=== PATIENT | female | born 1975 | race Caucasian/White ===

== ENCOUNTER 2017-05-26 17:20 | Inpatient (IN) | payer OTHER ==
[~2017-05-26] VITALS: Ht 182.9 cm; Wt 79.0 kg
[~2017-05-26 17:20] MED LIST: CLOP1TAB15 PO
[2017-05-26 18:23] LABS: BASO % 0.5 %; BASO ABS # 0.04 K/uL (0-0.2); EOS % 3.8 %; EOS ABS # 0.31 K/uL (0-0.5); HEMATOCRIT 29.9 % (37-47); HEMOGLOBIN 9.2 g/dL (12.0-16.0); IG# 0.01 K/uL (0.00-0.02); LYMPH % 30.5 %; LYMPH ABS # 2.49 K/uL (1.2-3.4); MEAN CELL VOLUME 71.5 fL (80-100); MEAN CORPUSCULAR HGB CONC 30.8 g/dl (32-36); MEAN PLATELET VOLUME 8.4 fL (7.4-10.4); MONO % 5.5 %; MONO ABS # 0.45 K/uL (0.11-0.59); NEUT % 59.6 %; NEUT ABS # 4.87 K/uL (1.4-6.5); PLATELET COUNT 321 K/uL (130-400); RED CELL DISTRIBUTION WIDTH CV 17.7 % (11.5-14.5); RED CELL DISTRIBUTION WIDTH SD 45.9 fL (36.4-46.3); WHITE BLOOD COUNT 8.17 K/uL (4.8-10.8)
[2017-05-26 18:45] LABS: CALCIUM 8.8 mg/dl (8.5-10.1); CREATININE 0.54 mg/dl (0.60-1.20); POTASSIUM 3.2 mmol/L (3.5-5.1)
--- NOTE | 2017-05-26 21:01 | DIAGNOSTIC IMAGING REPORT ---
DOPPLER ULTRASOUND OF THE LEFT LOWER EXTREMITY ARTERIES; ANKLE-BRACHIAL INDICES CLINICAL HISTORY: Left leg pain. COMPARISON STUDY: Doppler ultrasound of the left lower extremity arteries dated 11/08/2015. TECHNIQUE: Real-time, grayscale, and color Doppler sonography of the arteries of the left lower extremity is performed from the inguinal crease to the foot. Ankle brachial indices are calculated. FINDINGS: Ankle brachial indices: Right brachial pressure measures 145 and left brachial pressure measures 161. Pressures in the left posterior tibial artery measure 167 for an MONY of 0.66, and pressures in the left dorsalis pedis artery measure 112 for an MONY of 0.70. Pressures in the left posterior tibial artery measure 72 for an MONY of 0.45, and pressures in the left dorsalis pedis artery measure 65 for an MONY of 0.40. Left lower extremity: There is advanced atherosclerotic plaque seen throughout the arteries of the left lower extremity. There are biphasic to triphasic waveforms in the left common femoral artery with velocities measuring up to 210 cm/s. The profundus femoris artery is patent with velocities measuring up to 62 cm/s. There is complete thrombosis seen from the distal common femoral artery to the proximal popliteal artery. A stent in the superficial femoral artery is thrombosed. Collateral vessels are noted in the region of the distal superficial femoral and popliteal arteries. The mid to distal popliteal artery is patent with velocities measuring up to 76 cm/s. There is blunted arterial upstroke. The calf arteries are patent noting monophasic flow. Velocities in the calf vessels measure up to 41 cm/s. The dorsalis pedis artery is patent with velocities measuring up to 116 cm/s. Arterial waveforms are monophasic. IMPRESSION: 1. Advanced peripheral vascular disease with complete thrombosis from the distal common femoral artery to the proximal popliteal artery. A stent in the superficial femoral artery is occluded. 2. The calf arteries are patent noting monophasic flow. 3. Ankle-brachial indices as above. Dictated: 05/26/2017 8:26 PM Transcribed: 05/26/2017 9:00 PM [facility] Electronically signed by: Jason Campa M.D. 05/26/2017 9:05 PM Dictated Date/Time: 05/26/2017 8:26 PM
[2017-05-26] MEDS ORDERED: POTASSIUM CHLORIDE 10 MEQ TABCR PO STA (21:37)
[2017-05-26] MEDS ORDERED: HEPARIN SOD (PORCINE) 1000 UNIT/ML 10 ML VIAL IV STA (21:56)
[2017-05-26] MEDS: HEPARIN 25,000 UNIT/500ML D5W 500 ML IV PRN (22:36)
[2017-05-26] MEDS ORDERED: PROCHLORPERAZINE INJ 5 MG in SYRINGE 4 ML IV PRN (22:45)
[2017-05-26] MEDS ORDERED: LORAZEPAM 2 MG/ML 1 ML VIAL IV PRN (22:45)
[2017-05-26] MEDS ORDERED: MoRPHine SULFATE 4 MG/ML 1 ML CARP\\VIAL IV PRN (22:45)
[2017-05-26] MEDS ORDERED: ACETAMINOPHEN 325 MG TAB PO PRN (22:45)
[2017-05-26 23:06] VITALS: Ht 182.9 cm; Wt 79.0 kg
[2017-05-26 23:11] LABS: ALBUMIN 3.3 gm/dl (3.4-5.0); ALKALINE PHOSPHATASE 81 U/L (45-117); ALT/SGPT 16 U/L (12-78); AST/SGOT 16 U/L (15-37); TOTAL PROTEIN 7.1 gm/dl (6.4-8.2)
[2017-05-26 23:17] LABS: INR 0.9 (0.9-1.1); PTT PATIENT 22.9 SECONDS (21.0-31.0)
--- NOTE | 2017-05-27 00:18 | HISTORY & PHYSICAL EXAMINATION ---
DATE OF ADMISSION: 05/26/2017 PRIMARY CARE PHYSICIAN: Dr. Goldstein. CHIEF COMPLAINT: Left leg pain. HISTORY OF PRESENT ILLNESS: Medical history significant for hypercoagulable state (history of prothrombin mutation, recurrent miscarriages, arterial clot) peripheral vascular disease status post surgery, ongoing tobacco abuse, chronic iron deficiency anemia, medication noncompliance. Recent confinement last July 2015 for acute left lower extremity superficial femoral artery thrombosis status post thrombolysis, embolectomy and stent placement. Patient discharged on Plavix initially. Outpatient [facility] H[facility]ology evaluation requested by PCP following discharge for evaluation of arterial thrombosis. Outpatient workup showed iron deficiency anemia, iron tablets recommended, Patient later referred to Coumadin clinic for anticoagulation for arterial clots which patient complied with for a few months. She stopped Coumadin later on because she felt that she did not need it anymore. Last 2 days, patient noted worsening left lower extremity pain even at rest. No chest pain, no shortness of breath, no fever, no chills, no unusual swelling. No changes in leg sensation or temperature. No trauma. At the Emergency Room, ultrasound showed advanced PVD with complete thrombosis of distal common femoral artery proximal popliteal artery occluded, stent SFA. IV heparin started in the ER following recommendations of vascular surgeon on- call. MEDICAL HISTORY: As above. SURGERIES: Vascular procedures. HOME MEDICATIONS: None. ALLERGIES: PATIENT IS ALLERGIC TO ASPIRIN, NAPROXEN. FAMILY HISTORY: Breast cancer, diabetes. PERSONAL AND SOCIAL HISTORY: One pack daily. No chronic intake of alcoholic beverages. 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 REVIEW OF SYSTEMS: As per HPI All 10 systems reviewed. All other ROS negative. PHYSICAL EXAMINATION: VITAL SIGNS: Blood pressure was noted to be 160/77, later 137/72, pulse rate 81, RR 18, temperature 37.4, sats 100 on room air. GENERAL: Noted to be slightly anxious, no respiratory distress, looks older than stated age. SKIN: Pallor. Warm. HEENT: Pale palpebral conjuctivae. No ptosis. Dry mucosa. NECK: Supple neck. Nontender. HEART: Regular rate and rhythm. No murmur. ABDOMEN: Soft, nontender. EXTREMITIES: Erythematous digits of both feet. No tenderness. No unusual swelling. Decreased pedal pulses noted on the left lower extremity. NE : Coherent no gross focality LABORATORY DATA: Hemoglobin was noted to be 10.2, hematocrit 29.9, white cell count 8.17, platelets 201. Sodium 140, potassium 3.2, chloride 106, CO2 21, BUN 9, creatinine 0.5, glucose was noted to be 80. LLE Arterial Dopplers as above. ASSESSMENT: 1. Recurrent thrombosis, left lower extremity. history of peripheral vascular disease sp surgery probable hypercoagulable state. History Coumadin noncompliance 2. Ongoing tobacco use. 3. Chronic anemia iron deficiency on previous workup as per patient's record. Hemoglobin at baseline. 4. Hypokalemia. PLAN: [facility] IV heparin as per ER provider's discussion with vascular surgeon on-call, Dr. Jaimes. Replace potassium. Nicotine patch. DVT prophylaxis, Heparin. Full code. MTDD
--- NOTE | 2017-05-27 00:20 | EMERGENCY ROOM VISIT NOTE ---
History Report prepared by Isaias: Chito Faith Under the Supervision of: Dr. Westley Brewster D.O. First contact with patient: 17:27 Chief Complaint: LEG PAIN,LEG INJURY Stated Complaint: PVD- LEFT LEG CHES REALLY BAD, TOES LOSING FEELING History of Present Illness The patient is a 41 year old female who presents to the Emergency Room with complaints of persistent left leg pain since May 25, 2017. She notes a history of PVD in her left leg. 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 She states that she rested when she got home, though the pain has not gone away. She describes the pain as achy. She currently rates her pain a 7/10 in severity. She notes new numbness in her left toes. She notes the pain worsens with walking. She can walk about 60 feet before the achiness begins. She notes a history of two left leg surgeries related to her PVD. She notes the first surgery was to clear her left femoral artery and the second surgery was an angioplasty. She has a history of smoking. She notes that she is supposed to be on a blood thinner, though is not currently taking any blood thinners. Source of History: patient Onset: May 25, 2017 Position: leg Symptom Intensity: 7/10 Quality: ache Timing: other (persistent) Modifying Factors (Worsening): other (walking) Associated Symptoms: + numbness (left toes) Note: She notes left leg pain. Review of Systems See HPI for pertinent positives & negatives. A total of 10 systems reviewed and were otherwise negative. Past Medical & Surgical Medical Problems: (1) Femoral artery occlusion, left (2) Femoral popliteal artery thrombus (3) History of - miscarriage (4) Sciatica Surgical Problems: (1) Hx of endarterectomy (2) Status post arterial stent Family History FH: cancer FH: diabetes mellitus Social History Smoking Status: Current Every Day Smoker Alcohol Use: none Marital Status: in relationship Housing Status: lives with family Occupation Status: employed Allergies Coded Allergies: Aspirin (Verified Allergy, Unknown, SWELLING, CAN TAKE IBU PER PATIENT, ) Naproxen (Verified Allergy, Unknown, CAN TAKE IBU PER PATIENT, 05/26/17) Physical Exam Vital Signs Date Time Temp Pulse Resp B/P (MAP) Pulse Ox O2 Delivery O2 Flow Rate FiO2 1/20/18 23:28 88 18 119/64 98 Room Air 05/26/17 23:06 Room Air 05/26/17 22:28 81 18 137/72 100 Room Air 05/26/17 20:31 85 16 143/88 98 Room Air 05/26/17 17:23 37.4 93 20 164/77 100 Room Air Physical Exam GENERAL: Sitting up in bed, alert, well appearing, well nourished, no distress, non-toxic. Smells of smoke. EYE EXAM: normal conjunctiva. OROPHARYNX: no exudate, no erythema, lips, buccal mucosa, and tongue normal and mucous membranes are moist NECK: supple, no nuchal rigidity, no adenopathy, non-tender LUNGS: Clear to auscultation. Normal chest wall mechanics HEART: no murmurs, S1 normal and S2 normal ABDOMEN: abdomen soft, non-tender, normo-active bowel sounds, no masses, no rebound or guarding. BACK: Back is symmetrical on inspection and there is no deformity, no midline tenderness, no CVA tenderness. SKIN: no rashes and no bruising UPPER EXTREMITIES: upper extremities are grossly normal. LOWER EXTREMITIES: No pitting edema. Capillary refill is 3 seconds. Flexion and extension of hips, knees, ankles, and EHL intact bilaterally. Unable to appreciate popliteal and DP pulses. NEURO EXAM: Normal sensorium, cranial nerves II-XII grossly intact, normal speech, no gross weakness of arms. Medical Decision & Procedures ER Provider Diagnostic Interpretation: Radiology results as stated below per my review and the radiologist's interpretation: DOPPLER ULTRASOUND OF THE LEFT LOWER EXTREMITY ARTERIES; ANKLE-BRACHIAL INDICES CLINICAL HISTORY: Left leg pain. COMPARISON STUDY: Doppler ultrasound of the left lower extremity arteries dated 11/08/2015. TECHNIQUE: Real-time, grayscale, and color Doppler sonography of the arteries of the left lower extremity is performed from the inguinal crease to the foot. Ankle brachial indices are calculated. FINDINGS: Ankle brachial indices: Right brachial pressure measures 145 and left brachial pressure measures 161. Pressures in the left posterior tibial artery measure 167 for an MONY of 0.66, and pressures in the left dorsalis pedis artery measure 112 for an MONY of 0.70. Pressures in the left posterior tibial artery measure 72 for an MONY of 0.45, and pressures in the left dorsalis pedis artery measure 65 for an MONY of 0.40. Left lower extremity: There is advanced atherosclerotic plaque seen throughout the arteries of the left lower extremity. There are biphasic to triphasic waveforms in the left common femoral artery with velocities measuring up to 210 cm/s. The profundus femoris artery is patent with velocities measuring up to 62 cm/s. There is complete thrombosis seen from the distal common femoral artery to the proximal popliteal artery. A stent in the superficial femoral artery is thrombosed. Collateral vessels are noted in the region of the distal superficial femoral and popliteal arteries. The mid to distal popliteal artery is patent with velocities measuring up to 76 cm/s. There is blunted arterial upstroke. The calf arteries are patent noting monophasic flow. Velocities in the calf vessels measure up to 41 cm/s. The dorsalis pedis artery is patent with velocities measuring up to 116 cm/s. Arterial waveforms are monophasic. IMPRESSION: 1. Advanced peripheral vascular disease with complete thrombosis from the distal common femoral artery to the proximal popliteal artery. A stent in the superficial femoral artery is occluded. 2. The calf arteries are patent noting monophasic flow. 3. Ankle-brachial indices as above. Dictated: 05/26/2017 8:26 PM Transcribed: 05/26/2017 9:00 PM [email or web address] Electronically signed by: Jason Campa M.D. 05/26/2017 9:05 PM Dictated Date/Time: 05/26/2017 8:26 PM Laboratory Results 05/26/17 18:12 Red Blood Count 4.18, Mean Corpuscular Volume 71.5, Mean Corpuscular Hemoglobin 22.0, Mean Corpuscular Hemoglobin Concent 30.8, Mean Platelet Volume 8.4, Neutrophils (%) (Auto) 59.6, Lymphocytes (%) (Auto) 30.5, Monocytes (%) (Auto) 5.5, Eosinophils (%) (Auto) 3.8, Basophils (%) (Auto) 0.5, Neutrophils # (Auto) 4.87, Lymphocytes # (Auto) 2.49, Monocytes # (Auto) 0.45, Eosinophils # (Auto) 0.31, Basophils # (Auto) 0.04 05/26/17 18:12 Test 05/26/17 18:12 05/26/17 18:46 05/26/17 22:25 White Blood Count 8.17 K/uL (4.8-10.8) Red Blood Count 4.18 M/uL (4.2-5.4) Hemoglobin 9.2 g/dL (12.0-16.0) Hematocrit 29.9 % (37-47) Mean Corpuscular Volume 71.5 fL (80-100) Mean Corpuscular Hemoglobin 22.0 pg (25-34) Mean Corpuscular Hemoglobin Concent 30.8 g/dl (32-36) Platelet Count 321 K/uL (130-400) Mean Platelet Volume 8.4 fL (7.4-10.4) Neutrophils (%) (Auto) 59.6 % Lymphocytes (%) (Auto) 30.5 % Monocytes (%) (Auto) 5.5 % Eosinophils (%) (Auto) 3.8 % Basophils (%) (Auto) 0.5 % Neutrophils # (Auto) 4.87 K/uL (1.4-6.5) Lymphocytes # (Auto) 2.49 K/uL (1.2-3.4) Monocytes # (Auto) 0.45 K/uL (0.11-0.59) Eosinophils # (Auto) 0.31 K/uL (0-0.5) Basophils # (Auto) 0.04 K/uL (0-0.2) RDW Standard Deviation 45.9 fL (36.4-46.3) RDW Coefficient of Variation 17.7 % (11.5-14.5) Immature Granulocyte % (Auto) 0.1 % Immature Granulocyte # (Auto) 0.01 K/uL (0.00-0.02) Hypochromasia PRESENT Microcytosis PRESENT Anion Gap 14.0 mmol/L (3-11) Est Creatinine Clear Calc Drug Dose 158.2 ml/min Estimated GFR () 135.8 Estimated GFR (Non- 117.2 BUN/Creatinine Ratio 15.8 (10-20) Calcium Level 8.8 mg/dl (8.5-10.1) Magnesium Level 2.3 mg/dl (1.8-2.4) Total Bilirubin 0.2 mg/dl (0.2-1) Direct Bilirubin < 0.1 mg/dl (0-0.2) Aspartate Amino Transf (AST/SGOT) 16 U/L (15-37) Alanine Aminotransferase (ALT/SGPT) 16 U/L (12-78) Alkaline Phosphatase 81 U/L (45-117) Total Protein 7.1 gm/dl (6.4-8.2) Albumin 3.3 gm/dl (3.4-5.0) Human Chorionic Gonadotropin, Qual NEG (NEG) Lactic Acid Level 0.9 mmol/L (0.4-2.0) Prothrombin Time 9.6 SECONDS (9.0-12.0) Prothromb Time International Ratio 0.9 (0.9-1.1) Activated Partial Thromboplast Time 22.9 SECONDS (21.0-31.0) Partial Thromboplastin Ratio 0.9 Laboratory results per my review. Medications Administered Medications (Trade) Dose Ordered Sig/Ladarius Route Start Time Stop Time Status Last Admin Dose Admin Potassium Chloride (Klor-Con M10) 40 meq NOW STAT PO 05/26/17 21:37 05/26/17 21:56 DC 05/26/17 22:30 40 MEQ Heparin Sodium (Porcine) (Heparin Iv Bolus) 6,000 unit NOW STAT IV 05/26/17 21:56 05/26/17 21:57 DC 05/26/17 22:34 5,000 UNIT Heparin Sodium/ Dextrose 500 ml @ 27 mls/hr [id number] PRN IV 05/26/17 22:00 06/25/17 21:59 05/26/17 22:36 27 MLS/HR ED Course ED COURSE: Vital signs were reviewed and showed hypertensive. The patients medical record was reviewed The above diagnostic studies were performed and reviewed. ED treatments and interventions as stated above. 8: The patient was evaluated in room C12B. A complete history and physical examination was performed. 1830: I reassessed the patient at this time. She is resting. 2134: Upon reevaluation, I discussed my findings with the patient and she understands and agrees with the treatment plan. Based on the patients age, coexisting illnesses, exam and lab findings the decision to treat as an inpatient was made. The patient remained stable while under my care. The patient will be evaluated for further management. 2136: Ordered Potassium-Chloride 40 meq PO 6: I spoke with Vernon Bedollahey vascular surgeon. We discussed the patient's case. He recommends further evaluation. 2149: [place] [facility] [place] the patients case. The [facility] further management. 2155: Ordered Heparin Sodium (Porcine) 6,000 unit IV Medical Decision Differential diagnosis: Etiologies such as DVT, musculoskeletal, infection, joint effusion, trauma, lymphedema, idiopathic, CHF, as well as others were entertained. Patient is a 41-year-old female who presents to ER with a history of peripheral vascular disease and multiple stents her left leg. She notes that she has been having pain since this past Sunday. She does have tingling and numbness in the toes. She is still smoking. She does not take her Plavix as previously prescribed. CBC shows an anemia. BMP with mild hypokalemia. Patient was given a bolus of heparin and placed on heparin drip following discussion with Dr. Jaimes. Patient denied any bleeding risk factors including previous head bleeds, recent trauma, recent surgery, coughing up blood, vomiting blood, blood in stool or blood in urine. Patient was updated at bedside and admitted to internal medicine with arterial thrombus and decrease ABIs in her left lower extremity. Medication Reconcilliation Current Medication List: was personally reviewed by me Blood Pressure Screening Patient's blood pressure: Elevated blood pressure Blood pressure disposition: Elevated BP felt to be situational Consults Time Called: 2139 Consulting Physician: Sultana Bedolla vascular surgeon Returned Call: 2145 I spoke with Sultana Bedolla vascular surgeon. We discussed the patient's case. He recommends further evaluation. Additional Consults: Time Called: 2147 [facility] Returned Call: 2149 Additional Comments: [facility] We discussed the patients case. The patient will be evaluated by [facility] for further management. Impression Primary Impression: Femoral artery occlusion, left Additional Impression: Hypokalemia Critical Care I have personally spent 35 minutes of critical care time in the direct management of this patient. This includes bedside care, interpretation of diagnostic studies, and testing, discussion with consultants, patient, and family members, and other required patient management activities. This 35 minutes is in excess of all separately billable procedures. Scribe Attestation The scribe's documentation has been prepared under my direction and personally reviewed by me in its entirety. I confirm that the note above accurately reflects all work, treatment, procedures, and medical decision making performed by me. Departure Information Dispostion Being Evaluated By Hospitalist Referrals Kin Goldstein M.D.(BRITT) (PCP) Patient Instructions My [facility] Problem Qualifiers
[2017-05-27 00:27] VITALS: BP 147/78; PULSE 85; TEMP 37.1; O2SAT 99
[2017-05-27] MEDS ORDERED: LACTATED RINGER'S 1000ML 1,000 ML IV SCH (01:30)
[2017-05-27 04:58] LABS: HEMOGLOBIN 8.8 g/dL (12.0-16.0); MEAN CORPUSCULAR HEMOGLOBIN 21.8 pg (25-34); MEAN CORPUSCULAR HGB CONC 30.3 g/dl (32-36); MEAN PLATELET VOLUME 8.5 fL (7.4-10.4); PLATELET COUNT 309 K/uL (130-400); RED CELL DISTRIBUTION WIDTH CV 17.6 % (11.5-14.5); RED CELL DISTRIBUTION WIDTH SD 46.2 fL (36.4-46.3); WHITE BLOOD COUNT 7.77 K/uL (4.8-10.8)
[2017-05-27 05:13] LABS: PTT PATIENT 36.9 SECONDS (21.0-31.0)
[2017-05-27 05:22] LABS: CALCIUM 8.6 mg/dl (8.5-10.1); CREATININE 0.65 mg/dl (0.60-1.20); POTASSIUM 3.5 mmol/L (3.5-5.1)
[2017-05-27 05:31] LABS: BASO % 0.6 %; BASO ABS # 0.05 K/uL (0-0.2); EOS % 4.8 %; EOS ABS # 0.37 K/uL (0-0.5); IG# 0.01 K/uL (0.00-0.02); LYMPH ABS # 3.34 K/uL (1.2-3.4); MONO % 5.4 %; MONO ABS # 0.42 K/uL (0.11-0.59); NEUT % 46.1 %; NEUT ABS # 3.58 K/uL (1.4-6.5)
[2017-05-27] MEDS ORDERED: HEPARIN IV BOLUS 6,000 UNIT in SYRINGE 0 ML IV ONE (05:45)
[2017-05-27] MEDS: HEPARIN 25,000 UNIT/500ML D5W 500 ML IV PRN ×4 (06:00→15:13)
[2017-05-27 07:07] VITALS: BP 141/73; PULSE 99; TEMP 37; O2SAT 96
[2017-05-27] MEDS: NICOTINE 21 MG/24 HR TDSY TD SCH (09:00)
[2017-05-27 12:38] LABS: PTT PATIENT 65.7 SECONDS (21.0-31.0)
--- NOTE | 2017-05-27 15:13 | Progress Note ---
Internal Med Progress Note Date of Service: May 27, 2017. Provider Documentation: SUBJECTIVE: Seen and examined at bedside States leg pain is much improved Denies chest pain, SOB, dizziness, abd pain On Heparin drip OBJECTIVE: Vital Signs-as noted below Physical Exam: General Appearance:Moderately built and nourished, no apparent distress Head: normocephalic, Atraumatic Eyes: normal inspection, EOMI, PERRL Neck: supple, Trachea midline Respiratory/Chest: Normal breath sounds, CTA Cardiovascular: S1, S2, No murmur Abdomen/GI:Soft, Non tender, Bowel sounds present Extremities/Musculoskelatal:normal inspection, no edema, decreased peripheral pulse Neurologic/Psych:AAOX3, grossly no focal neurological deficits Skin: normal color, warm Lab data as noted below. 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 Chronic anemia H/O Iron deficiency Monitor Hb DVT px: on Heparin drip Code Status: Full code Vital Signs: Date Time Temp Pulse Resp B/P (MAP) Pulse Ox O2 Delivery O2 Flow Rate FiO2 05/28/17 16:12 37.0 85 20 146/60 (88) 97 Room Air 05/28/17 15:17 36.9 89 18 147/87 (107) 99 Room Air 05/28/17 14:09 36.8 75 18 133/74 (93) 97 Room Air 05/28/17 13:48 74 18 165/74 (104) 05/28/17 13:11 99 Room Air 05/28/17 13:10 36.8 78 16 149/84 (105) 99 Room Air 05/28/17 12:55 36.5 80 16 154/80 97 Room Air 05/28/17 12:40 36.5 78 16 160/81 100 Oxymask 7 05/28/17 12:30 36.5 85 16 156/85 100 Oxymask 7 05/28/17 08:45 37.1 81 18 118/54 (75) 99 Room Air 05/28/17 07:30 Room Air 05/27/17 23:20 36.8 97 18 147/66 (93) 97 Room Air 05/27/17 23:19 Room Air Lab Results: Results Past 24 Hours Test 05/28/17 08:22 Range/Units White Blood Count 6.54 4.8-10.8 K/uL Red Blood Count 4.12 4.2-5.4 M/uL Hemoglobin 9.0 12.0-16.0 g/dL Hematocrit 29.7 37-47 % Mean Corpuscular Volume 72.1 80-100 fL Mean Corpuscular Hemoglobin 21.8 25-34 pg Mean Corpuscular Hemoglobin Concent 30.3 32-36 g/dl Platelet Count 341 130-400 K/uL Mean Platelet Volume 8.7 7.4-10.4 fL Neutrophils (%) (Auto) 56.9 % Lymphocytes (%) (Auto) 31.7 % Monocytes (%) (Auto) 5.8 % Eosinophils (%) (Auto) 4.7 % Basophils (%) (Auto) 0.6 % Neutrophils # (Auto) 3.72 1.4-6.5 K/uL Lymphocytes # (Auto) 2.07 1.2-3.4 K/uL Monocytes # (Auto) 0.38 0.11-0.59 K/uL Eosinophils # (Auto) 0.31 0-0.5 K/uL Basophils # (Auto) 0.04 0-0.2 K/uL RDW Standard Deviation 46.5 36.4-46.3 fL RDW Coefficient of Variation 17.9 11.5-14.5 % Immature Granulocyte % (Auto) 0.3 % Immature Granulocyte # (Auto) 0.02 0.00-0.02 K/uL Polychromasia 1+ Hypochromasia PRESENT Microcytosis PRESENT Echinocytes 1+ Activated Partial Thromboplast Time 42.5 21.0-31.0 SECONDS Partial Thromboplastin Ratio 1.6 Sodium Level 140 136-145 mmol/L Potassium Level 4.0 3.5-5.1 mmol/L Chloride Level 111 98-107 mmol/L Carbon Dioxide Level 21 21-32 mmol/L Anion Gap 8.0 3-11 mmol/L Blood Urea Nitrogen 9 7-18 mg/dl Creatinine 0.65 0.60-1.20 mg/dl Est Creatinine Clear Calc Drug Dose 131.5 ml/min Estimated GFR () 127.8 Estimated GFR (Non- 110.3 BUN/Creatinine Ratio 13.8 10-20 Random Glucose 97 70-99 mg/dl Calcium Level 8.8 8.5-10.1 mg/dl Magnesium Level 2.4 1.8-2.4 mg/dl
[2017-05-27] MEDS ORDERED: POTASSIUM CHLORIDE 20 MEQ TABCR PO ONE (15:15)
[2017-05-27 15:58] VITALS: BP 137/72; PULSE 80; TEMP 36.9; O2SAT 96
[2017-05-27 23:20] VITALS: BP 147/66; PULSE 97; TEMP 36.8; O2SAT 97
[2017-05-28] VITALS (10 sets, daily range): BP systolic 116–165; BP diastolic 54–87; PULSE 74–100; TEMP 36.8–37.3; O2SAT 97–99
[2017-05-28] MEDS: HEPARIN 25,000 UNIT/500ML D5W 500 ML IV PRN ×6 (06:52→22:46)
[2017-05-28] MEDS: NICOTINE 21 MG/24 HR TDSY TD SCH (07:54)
--- NOTE | 2017-05-28 08:36 | Medical Consult ---
Consultation Note Date of Service May 28, 2017. Consultation Note Chief Complaint: LLE pain, History of Present Illness The patient is a 40 year old female with hx of miscarriages, seen in consultation today d/t LLE arterial occlusion with rest pain of LLE. Pt states she began having the pain starting sunday in her lower leg and foot. Pain became significantly worse, so came to ED for eval. US demonstrated SFA/pop occlusion with monophasic 3 vessel runoff. Pt had left femoral endart and angioplasty in the past. No hx of DVT. Denies MONGE, fever, chills, chest pain, SOB, abd pain, N/V, other nonhealing wounds or ulcers, other complaints. Allergies Coded Allergies: Aspirin (Verified Allergy, Unknown, SWELLING, CAN TAKE IBU PER PATIENT, ) Naproxen (Verified Allergy, Unknown, CAN TAKE IBU PER PATIENT, 07/23/15) Problem List Medical Problems: (1) Arterial occlusion, lower extremity Status: Acute (2) Back pain with sciatica Status: Acute Surgical / Medical History Hx Cardiac Surgery: No Hx Abdominal Surgery: No Hx Cancer Surgery: No Hx Thoracic Surgery: No Hx Orthopedic: No Hx Urinary Tract Surgery: No HX Other Surgery: Yes (D/C X 4 ) Family History noncontributory Social History Smoking Status: Current Every Day Smoker Hx Tobacco Use In Past Year?: Yes (1 PPD) Hx Alcohol Use - Type & Amnt: No Hx Substance Use -Type & Amnt: No Review of Systems Constitutional: No chills, No fever, No malaise Skin: No change in color Eyes: No visual changes ENMT: No sore throat Respiratory: No cough, No PATEL, No hemoptysis, No short of breath Cardiovascular: + intermittent claudication, No chest pain, No palpitations, No syncope, No edema Gastrointestinal: No abdominal pain, No nausea, No vomiting Genitourinary - Female: No dysuria, No hematuria Neurologic: + numbness, + tingling, No dizziness, No headache, No lethargy Physical Exam: Constitutional: General Apperance: heathly-appearing, well-nourished, well-developed Level of Distress: NAD Psychiatric: Mental Status: active & alert, normal mood, normal affect Orientation: oriented except where noted, to time, to place, to person Memory: recent memory normal, remote memory normal Head: normocephalic, atraumatic Eyes: EOM: EOMI ENMT: normal ENT inspection, hearing grossly normal Neck: supple, trachea midline Lungs: Respiratory effort: no dyspnea Auscultation: no wheezing, no rales/crackles, no rhonchi, decreased breath sounds Cardiovascular: Apical Impulse: not displaced Heart Auscultation: RRR, no murmurs, no rubs, no gallops Peripheral Pulses: Pulses: full and equal, in all extremities except if noted Bruits: none appreciated Carotid Pulse: normal on the left, normal on the right Brachial Pulses: normal on the left, normal on the right Radial Pulse: normal on the left, normal on the right Femoral Pulse: normal on the left, normal on the right Posterior Tibialis Pulse: normal on the right, pertinent finding ( Nonpalpable LLE, doppler) Dorsalis Pedis Pulse: normal on the right, pertinent finding (nonpalpable LLE, doppler) Abdomen: Bowel Sounds: normal Inspection & Palpation: soft, non-distended, no tenderness, guarding & rebound Musculoskeletal: normal strength (5/5 throughout), normal tone Extremities: Upper Right: no cyanosis, no edema, no varicosities Upper Left: no cyanosis, no edema, no varicosities Lower Right: no cyanosis, no edema, no varicosities Lower Left: no edema, pertinent finding (toes with delayed cap refill at 7 sec. Great toe severely tender with small medial side punctate lesion. No mottling or gangrene or open ulcers noted. ) Neurologic: Cranial Nerves: grossly intact Sensation: grossly intact ASSESSMENT and PLAN: LLE SFA occlusion with LLE ischemia/rest pain Plan: Patient for arteriography with possible intervention. I have discussed the risks options and benefits of the procedure with the patient. The patient understands the risks options and benefits and agrees to the procedure.
[2017-05-28 08:54] LABS: PTT PATIENT 42.5 SECONDS (21.0-31.0)
[2017-05-28 08:57] LABS: BASO % 0.6 %; BASO ABS # 0.04 K/uL (0-0.2); EOS % 4.7 %; EOS ABS # 0.31 K/uL (0-0.5); HEMATOCRIT 29.7 % (37-47); IG# 0.02 K/uL (0.00-0.02); LYMPH % 31.7 %; LYMPH ABS # 2.07 K/uL (1.2-3.4); MEAN CELL VOLUME 72.1 fL (80-100); MEAN CORPUSCULAR HEMOGLOBIN 21.8 pg (25-34); MEAN CORPUSCULAR HGB CONC 30.3 g/dl (32-36); MEAN PLATELET VOLUME 8.7 fL (7.4-10.4); MONO % 5.8 %; MONO ABS # 0.38 K/uL (0.11-0.59); NEUT % 56.9 %; NEUT ABS # 3.72 K/uL (1.4-6.5); PLATELET COUNT 341 K/uL (130-400); RED CELL DISTRIBUTION WIDTH CV 17.9 % (11.5-14.5); RED CELL DISTRIBUTION WIDTH SD 46.5 fL (36.4-46.3); WHITE BLOOD COUNT 6.54 K/uL (4.8-10.8)
[2017-05-28] MEDS ORDERED: CEFAZOLIN 1000MG IV PUSH 5 ML IV SCH (09:00)
[2017-05-28] MEDS ORDERED: HEPARIN IV BOLUS 3,000 UNIT in SYRINGE 0 ML IV ONE ×2 (09:15→22:30)
[2017-05-28 09:17] LABS: CALCIUM 8.8 mg/dl (8.5-10.1); CREATININE 0.65 mg/dl (0.60-1.20)
[2017-05-28] MEDS ORDERED: PROPOFOL IV EMULSION 10 MG/ML 20 ML VIAL IV ONE (10:43)
[2017-05-28] MEDS ORDERED: LIDOCAINE HCL 2% 2 ML VIAL (20MG/ML) ONE (10:43)
[2017-05-28] MEDS ORDERED: FENTANYL CITRATE INJ 50 MCG/1 ML 2 ML VIAL ONE (10:43)
[2017-05-28] MEDS ORDERED: MIDAZOLAM HCL 1 MG/ML 2ML VIAL ONE ×3 (10:44→11:50)
[2017-05-28] MEDS ORDERED: MEPERIDINE HCL 25 MG/ML CARP IV PRN (11:30)
[2017-05-28] MEDS ORDERED: PHENYLEPHRINE 100MCG/ML 5ML SYR IV PRN (11:30)
[2017-05-28] MEDS ORDERED: ONDANSETRON INJ 2 MG/ML 2 ML VIAL IV PRN (11:30)
[2017-05-28] MEDS ORDERED: HYDROmorphone INJ 2 MG/ML SYR/VIAL IV PRN (11:30)
[2017-05-28] MEDS ORDERED: FENTANYL CITRATE INJ 50 MCG/1 ML 2 ML VIAL IV PRN (11:30)
[2017-05-28] MEDS ORDERED: EpHEDrine SULFATE INJ 50 MG/ML AMP IV PRN (11:30)
[2017-05-28] MEDS ORDERED: NALOXONE HCL 0.4 MG/1 ML VIAL/CARP IV PRN (11:30)
[2017-05-28] MEDS ORDERED: FLUMAZENIL 0.1 MG/1 ML 10 ML VIAL IV PRN (11:30)
[2017-05-28] MEDS ORDERED: ATROPINE SULFATE 0.1 MG/ML 5ML SYR IV PRN (11:30)
[2017-05-28] MEDS ORDERED: LABETALOL HCL IV 5 MG/ML 20ML IV PRN (11:30)
[2017-05-28] MEDS ORDERED: DiphenhydrAMINE HCL 50 MG/ML VIAL ONE (12:11)
--- NOTE | 2017-05-28 12:15 | [facility] Post Operative Brief Note ---
Immediate Operative Summary Operative Date May 28, 2017. Pre-Operative Diagnosis OCCLUDED LEFT SUPERFICIAL FEMORAL ARTERY AND COMMON FEMORAL ARTERY Post-Operative Diagnosis OCCLUDED LEFT SUPERFICIAL FEMORAL ARTERY AND COMMON FEMORAL ARTERY Procedure(s) Performed Left Lower Extremity Arteriogram, Mechanical Closure for Right Femoral Artery Surgeon Dr. Jaimes Special Officer Automat Surgeon(s) None Estimated Blood Loss 10 Findings Consistent with Post-Op Diagnosis Specimens None Drains None Anesthesia Type MAC Complication(s) none Disposition Disposition: Recovery Room / PACU
[2017-05-28] MEDS ORDERED: IODIXANOL (VISIPAQUE) 270 MG/ML 50ML IV ONE (12:17)
[2017-05-28] MEDS ORDERED: LIDOCAINE HCL 1% 20 ML VIAL SQ ONE (12:17)
--- NOTE | 2017-05-28 12:51 | [facility] Operative Report ---
Operative Report Operative Date May 28, 2017. Pre-Operative Diagnosis OCCLUDED LEFT SUPERFICIAL FEMORAL ARTERY AND COMMON FEMORAL ARTERY Post-Operative Diagnosis OCCLUDED LEFT SUPERFICIAL FEMORAL ARTERY AND COMMON FEMORAL ARTERY Procedure(s) Performed Left Lower Extremity Arteriogram, Mechanical Closure for Right Femoral Artery Surgeon Dr. Jaimes Photovoltaic Subcontractor Surgeon(s) None Estimated Blood Loss 10 Findings As post op diagnosis Specimens None Anesthesia MAC Complication(s) None Disposition Recovery Room / PACU Indications This 41-year-old female who had left common femoral artery endarterectomy and thrombectomy and stenting of her left lower extremity in the past. She had another procedure which included angioplasty done at another hospital on the last few months. She now came into the hospital with left leg pain and reocclusion of her common femoral artery. On ultrasound the superficial femoral artery is also occluded with reconstitution of the popliteal. We recommended arteriography with possible intervention. Description of Procedure The patient was taken to the angiogram suite and placed in supine position. Both groins were prepped and draped in a sterile manner. Local anesthetic was administered to the right groin. Using ultrasound guidance the right common femoral artery was punctured. A 5 Romanian sheath was inserted over the wire. Using an 035 Glidewire and rim catheter the left common iliac artery was cannulated from the right side. The wire and catheter passed into the distal external iliac artery. Hand injection done prior to this showed the common iliac and external iliac artery to be widely patent. Once the catheter was passed into the left external iliac artery arteriography was performed of left lower extremity. This showed reocclusion of the common femoral artery with reconstitution of the profunda femoral artery. The superficial femoral artery was completely occluded with reconstitution at the adductor hiatus. There is three-vessel runoff down to the foot. No significant stenosis was seen below the reconstituted area. We did make multiple attempts with a quick cross and an 035 wire to pass the common femoral artery lesion. These were all unsuccessful. The wire and catheter were then pulled. The puncture site was then closed using a Star close device. Adequate hemostasis was noted. Sterile dressings were applied to the wound. The patient left the [facility] in good condition and tolerated the procedure well. I attest to the content of the Intraoperative Record and any orders documented therein. Any exceptions are noted below.
--- NOTE | 2017-05-28 12:53 | Anesthesiology Progress Note ---
Anesthesia Post Op Note Date & Time May 28, 2017 at 12:53 Vital Signs Pain Intensity: 0 Vital Signs Past 12 Hours Date Time Temp Pulse Resp B/P (MAP) Pulse Ox O2 Delivery O2 Flow Rate FiO2 05/28/17 12:40 36.5 78 16 160/81 100 Oxymask 7 05/28/17 12:30 36.5 85 16 156/85 100 Oxymask 7 05/28/17 08:45 37.1 81 18 118/54 (75) 99 Room Air 05/28/17 07:30 Room Air Notes Mental Status: alert / awake / arousable, participated in evaluation Pt Amnestic to Procedure: Yes Nausea / Vomiting: adequately controlled Pain: adequately controlled Airway Patency, RR, SpO2: stable & adequate BP & HR: stable & adequate Hydration State: stable & adequate Anesthetic Complications: no major complications apparent
--- NOTE | 2017-05-28 16:34 | Progress Note ---
Internal Med Progress Note Date of Service: May 28, 2017. Provider Documentation: SUBJECTIVE: Seen and examined at bedside Had arteriogram with Closure for Right Femoral Artery today States having soreness at surgical site Denies chest pain, SOB, dizziness, abd pain On Heparin drip OBJECTIVE: Vital Signs-as noted below Physical Exam: General Appearance:Moderately built and nourished, no apparent distress Head: normocephalic, Atraumatic Eyes: normal inspection, EOMI, PERRL Neck: supple, Trachea midline Respiratory/Chest: Normal breath sounds, CTA Cardiovascular: S1, S2, No murmur Abdomen/GI:Soft, Non tender, Bowel sounds present Extremities/Musculoskelatal:normal inspection, no edema, decreased peripheral pulse Neurologic/Psych:AAOX3, grossly no focal neurological deficits Skin: normal color, warm Lab data as noted below. 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 Nicotine patch Chronic anemia H/O Iron deficiency Monitor Hb DVT px: on Heparin drip Code Status: Full code Vital Signs: Date Time Temp Pulse Resp B/P (MAP) Pulse Ox O2 Delivery O2 Flow Rate FiO2 05/28/17 16:12 37.0 85 20 146/60 (88) 97 Room Air 05/28/17 15:17 36.9 89 18 147/87 (107) 99 Room Air 05/28/17 14:09 36.8 75 18 133/74 (93) 97 Room Air 05/28/17 13:48 74 18 165/74 (104) 05/28/17 13:11 99 Room Air 05/28/17 13:10 36.8 78 16 149/84 (105) 99 Room Air 05/28/17 12:55 36.5 80 16 154/80 97 Room Air 05/28/17 12:40 36.5 78 16 160/81 100 Oxymask 7 05/28/17 12:30 36.5 85 16 156/85 100 Oxymask 7 05/28/17 08:45 37.1 81 18 118/54 (75) 99 Room Air 05/28/17 07:30 Room Air 05/27/17 23:20 36.8 97 18 147/66 (93) 97 Room Air 05/27/17 23:19 Room Air Lab Results: Results Past 24 Hours Test 05/28/17 08:22 Range/Units White Blood Count 6.54 4.8-10.8 K/uL Red Blood Count 4.12 4.2-5.4 M/uL Hemoglobin 9.0 12.0-16.0 g/dL Hematocrit 29.7 37-47 % Mean Corpuscular Volume 72.1 80-100 fL Mean Corpuscular Hemoglobin 21.8 25-34 pg Mean Corpuscular Hemoglobin Concent 30.3 32-36 g/dl Platelet Count 341 130-400 K/uL Mean Platelet Volume 8.7 7.4-10.4 fL Neutrophils (%) (Auto) 56.9 % Lymphocytes (%) (Auto) 31.7 % Monocytes (%) (Auto) 5.8 % Eosinophils (%) (Auto) 4.7 % Basophils (%) (Auto) 0.6 % Neutrophils # (Auto) 3.72 1.4-6.5 K/uL Lymphocytes # (Auto) 2.07 1.2-3.4 K/uL Monocytes # (Auto) 0.38 0.11-0.59 K/uL Eosinophils # (Auto) 0.31 0-0.5 K/uL Basophils # (Auto) 0.04 0-0.2 K/uL RDW Standard Deviation 46.5 36.4-46.3 fL RDW Coefficient of Variation 17.9 11.5-14.5 % Immature Granulocyte % (Auto) 0.3 % Immature Granulocyte # (Auto) 0.02 0.00-0.02 K/uL Polychromasia 1+ Hypochromasia PRESENT Microcytosis PRESENT Echinocytes 1+ Activated Partial Thromboplast Time 42.5 21.0-31.0 SECONDS Partial Thromboplastin Ratio 1.6 Sodium Level 140 136-145 mmol/L Potassium Level 4.0 3.5-5.1 mmol/L Chloride Level 111 98-107 mmol/L Carbon Dioxide Level 21 21-32 mmol/L Anion Gap 8.0 3-11 mmol/L Blood Urea Nitrogen 9 7-18 mg/dl Creatinine 0.65 0.60-1.20 mg/dl Est Creatinine Clear Calc Drug Dose 131.5 ml/min Estimated GFR () 127.8 Estimated GFR (Non- 110.3 BUN/Creatinine Ratio 13.8 10-20 Random Glucose 97 70-99 mg/dl Calcium Level 8.8 8.5-10.1 mg/dl Magnesium Level 2.4 1.8-2.4 mg/dl
[2017-05-28] MEDS: TRAMADOL HCL 50 MG TAB PO PRN (16:54)
[2017-05-28 21:07] LABS: PTT PATIENT 42.9 SECONDS (21.0-31.0)
[2017-05-29] VITALS (10 sets, daily range): BP systolic 95–139; BP diastolic 63–78; PULSE 69–90; TEMP 36.5–37.1; O2SAT 93–98
[2017-05-29] MEDS: HEPARIN 25,000 UNIT/500ML D5W 500 ML IV PRN ×3 (00:09→06:47)
[2017-05-29] MEDS: TRAMADOL HCL 50 MG TAB PO PRN (00:10)
[2017-05-29 05:13] LABS: BASO % 0.6 %; BASO ABS # 0.04 K/uL (0-0.2); EOS % 4.3 %; EOS ABS # 0.29 K/uL (0-0.5); HEMATOCRIT 29.3 % (37-47); HEMOGLOBIN 8.7 g/dL (12.0-16.0); IG# 0.01 K/uL (0.00-0.02); LYMPH % 34.1 %; LYMPH ABS # 2.29 K/uL (1.2-3.4); MEAN CELL VOLUME 71.6 fL (80-100); MEAN CORPUSCULAR HEMOGLOBIN 21.3 pg (25-34); MEAN CORPUSCULAR HGB CONC 29.7 g/dl (32-36); MEAN PLATELET VOLUME 8.9 fL (7.4-10.4); MONO % 5.4 %; MONO ABS # 0.36 K/uL (0.11-0.59); NEUT % 55.5 %; NEUT ABS # 3.73 K/uL (1.4-6.5); PLATELET COUNT 360 K/uL (130-400); RED CELL DISTRIBUTION WIDTH CV 17.5 % (11.5-14.5); RED CELL DISTRIBUTION WIDTH SD 45.9 fL (36.4-46.3); WHITE BLOOD COUNT 6.72 K/uL (4.8-10.8)
[2017-05-29 05:29] LABS: CALCIUM 8.6 mg/dl (8.5-10.1); CREATININE 0.78 mg/dl (0.60-1.20); POTASSIUM 3.9 mmol/L (3.5-5.1)
[2017-05-29] MEDS ORDERED: CEFAZOLIN 1000MG IV PUSH 5 ML IV SCH (06:00)
[2017-05-29] MEDS ORDERED: BUPIVACAINE/EPINEPHRINE 0.5% MPF 1:200,000 30 ML VIAL ONE (06:51)
[2017-05-29] MEDS ORDERED: GELATIN SPONGE SZ 100 ONE (06:51)
[2017-05-29] MEDS ORDERED: LIDOCAINE HCL 1% 20 ML VIAL ONE (06:51)
[2017-05-29] MEDS ORDERED: IODIXANOL (VISIPAQUE) 270 MG/ML 50ML ONE (06:51)
[2017-05-29] MEDS ORDERED: CEFAZOLIN SOD 1 GM VIAL ONE (06:52)
[2017-05-29] MEDS ORDERED: HEPARIN SOD (PORCINE) 1000 UNIT/ML 10 ML VIAL ONE ×2 (06:52→08:50)
[2017-05-29] MEDS ORDERED: PAPAVERINE HCL INJ 30 MG/ML 2 ML VIAL ONE (06:52)
[2017-05-29] MEDS ORDERED: THROMBIN 5000 UNITS KIT ONE (06:52)
[2017-05-29] MEDS ORDERED: NALOXONE HCL 0.4 MG/1 ML VIAL/CARP IV PRN (07:15)
[2017-05-29] MEDS ORDERED: LABETALOL HCL IV 5 MG/ML 20ML IV PRN (07:15)
[2017-05-29] MEDS ORDERED: MoRPHine SULFATE 10 MG/ML CARP/VIAL IV PRN (07:15)
[2017-05-29] MEDS ORDERED: PHENYLEPHRINE 100MCG/ML 5ML SYR IV PRN (07:15)
[2017-05-29] MEDS ORDERED: FLUMAZENIL 0.1 MG/1 ML 10 ML VIAL IV PRN (07:15)
[2017-05-29] MEDS ORDERED: ATROPINE SULFATE 0.1 MG/ML 5ML SYR IV PRN (07:15)
[2017-05-29] MEDS ORDERED: MEPERIDINE HCL 25 MG/ML CARP IV PRN (07:15)
[2017-05-29] MEDS ORDERED: ONDANSETRON INJ 2 MG/ML 2 ML VIAL IV PRN (07:15)
[2017-05-29] MEDS ORDERED: EpHEDrine SULFATE INJ 50 MG/ML AMP IV PRN (07:15)
--- NOTE | 2017-05-29 07:29 | Anesthesiology Progress Note ---
Anesthesia Post Op Note Date & Time May 29, 2017 at 07:28 Vital Signs Pain Intensity: 7.0 Vital Signs Past 12 Hours Date Time Temp Pulse Resp B/P (MAP) Pulse Ox O2 Delivery O2 Flow Rate FiO2 05/29/17 07:17 37.1 84 16 95/63 (74) 98 Room Air 05/29/17 03:21 37.0 79 16 116/68 (84) 96 Room Air 05/28/17 23:39 Room Air 05/28/17 23:33 37.3 79 16 129/74 (92) 98 Room Air 05/28/17 19:35 37.2 100 18 116/69 (85) 97 Room Air Notes Mental Status: alert / awake / arousable Pt Amnestic to Procedure: Yes Nausea / Vomiting: adequately controlled Pain: adequately controlled Airway Patency, RR, SpO2: stable & adequate BP & HR: stable & adequate
[2017-05-29] MEDS ORDERED: MIDAZOLAM HCL 1 MG/ML 2ML VIAL ONE (07:38)
[2017-05-29] MEDS ORDERED: PROPOFOL IV EMULSION 10 MG/ML 20 ML VIAL IV ONE (07:38)
[2017-05-29] MEDS ORDERED: FENTANYL CITRATE INJ 50 MCG/1 ML 2 ML VIAL ONE ×3 (07:38→08:56)
[2017-05-29] MEDS ORDERED: LIDOCAINE HCL 2% 2 ML VIAL (20MG/ML) ONE (07:39)
[2017-05-29] MEDS ORDERED: DEXAMETHASONE SOD INJ 4 MG/ML VIAL ONE (07:41)
[2017-05-29] MEDS ORDERED: SUCCINYLCHOLINE 100MG/5ML SYR IV ONE (07:41)
[2017-05-29] MEDS ORDERED: ONDANSETRON INJ 2 MG/ML 2 ML VIAL ONE (07:41)
--- NOTE | 2017-05-29 07:42 | Progress Note ---
Progress Note Date of Service May 29, 2017. Progress Note Patient for revascularization of the left lower extremity. I have discussed the risks options and benefits of the procedure with the patient. The patient understands the risks options and benefits and agrees to the procedure. I have examined the patient, reviewed the History & Physical and in the interval since the performance of the History & Physical I have noted the following changes of clinical significance: No changes noted
[2017-05-29] MEDS ORDERED: ESMOLOL HCL 10 MG/ML 10 ML VIAL ONE (08:52)
[2017-05-29] MEDS: NICOTINE 21 MG/24 HR TDSY TD SCH (09:00)
--- NOTE | 2017-05-29 09:48 | [facility] Post Operative Brief Note ---
Immediate Operative Summary Operative Date May 29, 2017. Pre-Operative Diagnosis Occluded Left Superficial Femoral Artery And Common Femoral Artery Post-Operative Diagnosis Occluded Left Superficial Femoral Artery And Common Femoral Artery Procedure(s) Performed Left Common Femoral Endarterectomy with Graft Surgeon Gutter Hanger Surgeon(s) CALLI Coronado Estimated Blood Loss 300ml Findings Consistent with Post-Op Diagnosis Specimens A. Explanted Graft Left Leg Drains None Anesthesia Type General Complication(s) none Disposition Disposition: Recovery Room / PACU
[2017-05-29] MEDS: HYDROmorphone INJ 1 MG/ML SYR IV PRN ×2 (10:34→10:42)
[2017-05-29 10:40] LABS: BASO % 0.2 %; BASO ABS # 0.03 K/uL (0-0.2); EOS % 1.2 %; EOS ABS # 0.18 K/uL (0-0.5); HEMATOCRIT 32.3 % (37-47); HEMOGLOBIN 10.4 g/dL (12.0-16.0); IG# 0.02 K/uL (0.00-0.02); LYMPH % 7.3 %; LYMPH ABS # 1.06 K/uL (1.2-3.4); MEAN CELL VOLUME 75.3 fL (80-100); MEAN CORPUSCULAR HEMOGLOBIN 24.2 pg (25-34); MEAN CORPUSCULAR HGB CONC 32.2 g/dl (32-36); MEAN PLATELET VOLUME 8.7 fL (7.4-10.4); MONO % 1.2 %; MONO ABS # 0.18 K/uL (0.11-0.59); NEUT ABS # 13.06 K/uL (1.4-6.5); PLATELET COUNT 300 K/uL (130-400); RED CELL DISTRIBUTION WIDTH CV 19.5 % (11.5-14.5); RED CELL DISTRIBUTION WIDTH SD 53.6 fL (36.4-46.3); WHITE BLOOD COUNT 14.53 K/uL (4.8-10.8)
[2017-05-29 10:55] LABS: CALCIUM 7.9 mg/dl (8.5-10.1); CREATININE 0.8 mg/dl (0.60-1.20); POTASSIUM 4.5 mmol/L (3.5-5.1)
--- NOTE | 2017-05-29 11:03 | Anesthesiology Progress Note ---
Anesthesia Post Op Note Date & Time May 29, 2017 at 11:03 Vital Signs Pain Intensity: 4 Vital Signs Past 12 Hours Date Time Temp Pulse Resp B/P (MAP) Pulse Ox O2 Delivery O2 Flow Rate FiO2 05/29/17 11:00 36.9 86 14 130/71 92 Nasal Cannula 3 05/29/17 10:50 91 13 130/75 92 Nasal Cannula 3 05/29/17 10:40 91 17 145/78 92 Nasal Cannula 3 05/29/17 10:30 94 19 142/79 93 Oxymask 10 05/29/17 10:20 95 17 140/83 93 Oxymask 10 05/29/17 10:13 36.8 99 16 140/80 93 Oxymask 10 05/29/17 07:17 37.1 84 16 95/63 (74) 98 Room Air 05/29/17 03:21 37.0 79 16 116/68 (84) 96 Room Air 05/28/17 23:39 Room Air 05/28/17 23:33 37.3 79 16 129/74 (92) 98 Room Air Notes Mental Status: alert / awake / arousable, participated in evaluation Pt Amnestic to Procedure: Yes Nausea / Vomiting: adequately controlled Pain: adequately controlled Airway Patency, RR, SpO2: stable & adequate BP & HR: stable & adequate Hydration State: stable & adequate Anesthetic Complications: no major complications apparent
--- NOTE | 2017-05-29 14:43 | Progress Note ---
Medicine Progress Note Date & Time of Visit: May 29, 2017 at 14:41. Subjective Patient was seen after surgery today, she reports feeling sore and hungry but otherwise no complaints. No overnight events noted. Reports she was using her incentive spirometer prior to surgery and denies any CP, SOB, or cough. Objective Last 8 Hrs Date Time Temp Pulse Resp B/P (MAP) Pulse Ox O2 Delivery O2 Flow Rate FiO2 05/29/17 14:37 69 16 130/68 (88) 96 2.0 05/29/17 13:20 69 16 139/78 (98) 97 2.0 05/29/17 12:20 79 16 126/71 (89) 96 2.0 05/29/17 12:20 Nasal Cannula 3.0 05/29/17 12:14 37.0 87 16 122/76 (91) 95 Nasal Cannula 3.0 05/29/17 11:20 36.8 90 16 137/73 (94) 93 Nasal Cannula 3.0 05/29/17 11:20 94 Nasal Cannula 3.0 05/29/17 11:10 89 15 138/76 94 Nasal Cannula 3 05/29/17 11:00 36.9 86 14 130/71 92 Nasal Cannula 3 05/29/17 10:50 91 13 130/75 92 Nasal Cannula 3 05/29/17 10:40 91 17 145/78 92 Nasal Cannula 3 05/29/17 10:30 94 19 142/79 93 Oxymask 10 05/29/17 10:20 95 17 140/83 93 Oxymask 10 05/29/17 10:13 36.8 99 16 140/80 93 Oxymask 10 05/29/17 07:17 37.1 84 16 95/63 (74) 98 Room Air Physical Exam: GENERAL: Patient is in no acute distress. HEENT: No acute trauma, normocephalic, mucous membranes moist, no nasal congestion, no scleral icterus, conjunctivae clear. NECK: No stridor, trachea is midline, no JVD. LUNGS: Clear to auscultation bilaterally, no wheeze, no rhonchi, breath sounds equal. HEART: Without murmurs gallops or rubs, regular rate and rhythm. ABDOMEN: Soft, nontender, bowel sounds positive, no hepatosplenomegaly EXTREMITIES: No cyanosis or edema, distal pulses palpable NEUROLOGIC: Oriented x 3, no acute motor or sensory deficits, no focal weakness. SKIN: No rash, no jaundice, no diaphoresis. Laboratory Results: Last 24 Hours Test 05/28/17 20:46 05/29/17 04:45 05/29/17 10:19 Activated Partial Thromboplast Time 42.9 SECONDS 70.0 SECONDS Partial Thromboplastin Ratio 1.7 2.7 White Blood Count 6.72 K/uL 14.53 K/uL Red Blood Count 4.09 M/uL 4.29 M/uL Hemoglobin 8.7 g/dL 10.4 g/dL Hematocrit 29.3 % 32.3 % Mean Corpuscular Volume 71.6 fL 75.3 fL Mean Corpuscular Hemoglobin 21.3 pg 24.2 pg Mean Corpuscular Hemoglobin Concent 29.7 g/dl 32.2 g/dl Platelet Count 360 K/uL 300 K/uL Mean Platelet Volume 8.9 fL 8.7 fL Neutrophils (%) (Auto) 55.5 % 90.0 % Lymphocytes (%) (Auto) 34.1 % 7.3 % Monocytes (%) (Auto) 5.4 % 1.2 % Eosinophils (%) (Auto) 4.3 % 1.2 % Basophils (%) (Auto) 0.6 % 0.2 % Neutrophils # (Auto) 3.73 K/uL 13.06 K/uL Lymphocytes # (Auto) 2.29 K/uL 1.06 K/uL Monocytes # (Auto) 0.36 K/uL 0.18 K/uL Eosinophils # (Auto) 0.29 K/uL 0.18 K/uL Basophils # (Auto) 0.04 K/uL 0.03 K/uL RDW Standard Deviation 45.9 fL 53.6 fL RDW Coefficient of Variation 17.5 % 19.5 % Immature Granulocyte % (Auto) 0.1 % 0.1 % Immature Granulocyte # (Auto) 0.01 K/uL 0.02 K/uL Polychromasia 1+ Hypochromasia PRESENT Microcytosis PRESENT Sodium Level 137 mmol/L 137 mmol/L Potassium Level 3.9 mmol/L 4.5 mmol/L Chloride Level 108 mmol/L 110 mmol/L Carbon Dioxide Level 23 mmol/L 21 mmol/L Anion Gap 6.0 mmol/L 6.0 mmol/L Blood Urea Nitrogen 11 mg/dl 11 mg/dl Creatinine 0.78 mg/dl 0.80 mg/dl Est Creatinine Clear Calc Drug Dose 109.6 ml/min 106.8 ml/min Estimated GFR () 109.4 106.1 Estimated GFR (Non- 94.4 91.6 BUN/Creatinine Ratio 13.9 13.2 Random Glucose 90 mg/dl 100 mg/dl Calcium Level 8.6 mg/dl 7.9 mg/dl Magnesium Level 2.2 mg/dl Assessment & Plan LLE SFA OCCLUSION/THROMBOSIS: with LLE ischemia and rest pain -recurrent arterial thrombosis in setting of known hypercoagulable state and prothrombin mutation as well as noncompliance with anticoagulation -PVD S/P surgery; had surgery again today with endarterectomy and graft of the SFA -Left Lower Extremity Arteriogram, Mechanical Closure for Right Femoral Artery on 05/28/17 -admits to non compliance with Coumadin (Was on Plavix and Coumadin previously) -Counselled on need to quit smoking -need statin in addition to possible Plavix and Coumadin as able -continue IV heparin today; would like to restart coumadin when ok with vascular surgery -Vascular surgery consulted, appreciate intervention -pain control HYPOKALEMIA: -replete and monitor TOBACCO DEPENDANCE: -counseled to quit smoking -Nicotine patch CHRONIC ANEMIA: -hx of Iron deficiency -Monitor Current Inpatient Medications: Current Inpatient Medications Medications (Trade) Dose Ordered Sig/Ladarius Route Start Time Stop Time Status Last Admin Dose Admin Acetaminophen (Tylenol Tab) 650 mg Q4H PRN PO 05/26/17 22:45 06/25/17 22:44 Tramadol HCl (Ultram Tab) 25 mg Q6H PRN PO 05/26/17 22:45 06/25/17 22:44 05/29/17 00:10 25 MG Prochlorperazine Edisylate 5 mg/ Syringe 5 ml @ 5 mls/min Q6H PRN IV 05/26/17 22:45 06/25/17 22:44 Morphine Sulfate (MoRPHine SULFATE INJ) 4 mg Q6H PRN IV 05/26/17 22:45 06/09/17 22:44 05/29/17 13:53 4 MG Nicotine (Nicoderm Cq 21MG Patch) 1 patch QAM TD 05/27/17 09:00 06/26/17 08:59 Lorazepam (Ativan Inj) 0.5 mg Q4H PRN IV 05/26/17 22:45 06/25/17 22:44 Miscellaneous (Remove Nicoderm Patch) 1 ea HS N/A 05/27/17 21:00 06/26/17 20:59 Cefazolin Sodium 5 ml @ 2.5 mls/min PREOP IV 05/29/17 06:00 05/30/17 05:59 05/29/17 07:58 2.5 MLS/MIN
--- NOTE | 2017-05-29 15:47 | OPERATIVE REPORT ---
DATE OF OPERATION: 05/29/2017 PREOPERATIVE DIAGNOSIS: Occluded left common femoral and superficial femoral arteries. POSTOPERATIVE DIAGNOSIS: Same. PROCEDURE: Left common femoral artery endarterectomy with patch angioplasty. SURGEON: Dr. Sanchez Jaimes. FISH BAILER: Krista Monk PA-C. ANESTHETIC: General endotracheal. PROCEDURE INDICATIONS: The patient is a 41-year-old female who had procedures done on the left lower extremity in the past, which included an endarterectomy of the common femoral artery with patch angioplasty and ballooning and stenting of her superficial femoral artery. She came back to the Emergency Room complaining of a new onset pain in her left leg. She was found to have occlusion of the common femoral artery and superficial femoral artery on an arteriography. We could not traverse the lesion and therefore recommended operative repair. She understood the risks, options and benefits and agreed to go ahead with this procedure. The patient was taken to the operating room and placed in a supine position. After the left groin was prepped and draped in a sterile manner, a longitudinal incision was then made. This was carried down to where the common femoral artery was identified. This was isolated from just below the inguinal ligament where there was a good pulse present down approximately 5 cm beyond the profunda femoral artery. Once this was done, the patient was heparinized. The external iliac artery was clamped on either inguinal ligament. Profunda and superficial femoral arteries were clamped. We then opened up the common femoral artery. The common femoral artery had a large amount of fibrous tissue occluding the lumen. This extended into the profunda origin. The arteriography was carried down on to the superficial femoral artery. The superficial femoral artery was chronically occluded with fibrin throughout. No lumen was seen. No backbleeding was noted. We could not find the lumen or pass anything distally. It was decided that this part of the previous surgery was down for a while. Her change in symptoms was secondary to the new occlusion of the common femoral artery. We then endarterectomized the common femoral artery as well as the origin of profunda femoral artery. There was excellent backbleeding through the profunda. We then used a bovine patch and patched the common femoral artery and extended it down just beyond the profunda femoral artery excluding the superficial femoral artery from the circulation. At that point, prior to completing the closure, backbleeding and forward bleeding was allowed to occur and the final few sutures were placed and securely tied. Clamps were then removed. Excellent flow was heard through the profunda femoral artery with Doppler. She had excellent Doppler signals in the foot after the procedure was done. Adequate hemostasis was noted at the wound. After adequate hemostasis was noted, the wound was closed in the usual fashion using running 2-0 Vicryl suture for the femoral sheath, 3-0 Vicryl for subcutaneous layer and yury for the skin edges. Sterile dressings were applied to the wound. The patient left the operating room in satisfactory condition and tolerated the procedure well. Krista Monk Pac assisted due to lack of resident availability and was necessary for prepping, draping, retraction, wound closure deep layers, subcutaneous tissue, and skin closure and was necessary for assisting with the case. I attest to the content of the Intraoperative Record and any orders documented therein. Any exceptions are noted below. YARITZA
[2017-05-30] MEDS: TRAMADOL HCL 50 MG TAB PO PRN ×2 (00:08→11:26)
[2017-05-30 03:08] VITALS: BP 126/69; PULSE 79; TEMP 36.8; O2SAT 94
[2017-05-30 07:55] LABS: BASO % 0.1 %; BASO ABS # 0.01 K/uL (0-0.2); EOS % 0.1 %; EOS ABS # 0.01 K/uL (0-0.5); HEMATOCRIT 31.9 % (37-47); HEMOGLOBIN 10.1 g/dL (12.0-16.0); IG# 0.03 K/uL (0.00-0.02); LYMPH % 17.4 %; LYMPH ABS # 2.01 K/uL (1.2-3.4); MEAN CELL VOLUME 74.7 fL (80-100); MEAN CORPUSCULAR HEMOGLOBIN 23.7 pg (25-34); MEAN CORPUSCULAR HGB CONC 31.7 g/dl (32-36); MEAN PLATELET VOLUME 8.7 fL (7.4-10.4); MONO % 6.2 %; MONO ABS # 0.71 K/uL (0.11-0.59); NEUT % 75.9 %; NEUT ABS # 8.77 K/uL (1.4-6.5); PLATELET COUNT 316 K/uL (130-400); RED CELL DISTRIBUTION WIDTH CV 18.7 % (11.5-14.5); RED CELL DISTRIBUTION WIDTH SD 50.9 fL (36.4-46.3); WHITE BLOOD COUNT 11.54 K/uL (4.8-10.8)
[2017-05-30 08:27] VITALS: BP 131/77; PULSE 74; TEMP 36.9; O2SAT 94
[2017-05-30 08:30] LABS: CALCIUM 9.2 mg/dl (8.5-10.1); CREATININE 0.62 mg/dl (0.60-1.20); PHOSPHORUS 2.7 mg/dl (2.5-4.9); POTASSIUM 3.8 mmol/L (3.5-5.1)
[2017-05-30] MEDS: NICOTINE 21 MG/24 HR TDSY TD SCH (09:00)
--- NOTE | 2017-05-30 11:39 | Progress Note ---
Progress Note Date of Service: May 30, 2017. Subjective 41 yo f with multiple vascular issues, POD #1 after LLE femoral art endarterectomy with bovine patch, seen in f/u today. Pt admits pain in L groin , but states her foot feeling improved. Denies any new complaints and is anxious for d/c to home. Problem List Medical Problems: (1) Arterial occlusion, lower extremity Status: Acute (2) Back pain with sciatica Status: Acute (3) Hypokalemia Status: Acute (4) Leg pain Status: Acute Objective Vital Signs Vital Signs Past 12 Hours Date Time Temp Pulse Resp B/P (MAP) Pulse Ox O2 Delivery O2 Flow Rate FiO2 05/30/17 08:44 Room Air 05/30/17 08:27 36.9 74 18 131/77 (95) 94 Room Air 05/30/17 03:08 36.8 79 16 126/69 (88) 94 Room Air 05/30/17 00:00 Room Air Exam CONST: A&O x3, NAD, mildly chronically ill appearing female EXT: LLE groin incision C/D/I with yury, moderate local tenderness. Mild edema, minimal ecchymosis. LLE foot warm and pink, brisk cap refill, excellent doppler distal signals Laboratory and Microbiology Results Past 24 Hours Test 05/30/17 07:28 Range/Units White Blood Count 11.54 4.8-10.8 K/uL Red Blood Count 4.27 4.2-5.4 M/uL Hemoglobin 10.1 12.0-16.0 g/dL Hematocrit 31.9 37-47 % Mean Corpuscular Volume 74.7 80-100 fL Mean Corpuscular Hemoglobin 23.7 25-34 pg Mean Corpuscular Hemoglobin Concent 31.7 32-36 g/dl Platelet Count 316 130-400 K/uL Mean Platelet Volume 8.7 7.4-10.4 fL Neutrophils (%) (Auto) 75.9 % Lymphocytes (%) (Auto) 17.4 % Monocytes (%) (Auto) 6.2 % Eosinophils (%) (Auto) 0.1 % Basophils (%) (Auto) 0.1 % Neutrophils # (Auto) 8.77 1.4-6.5 K/uL Lymphocytes # (Auto) 2.01 1.2-3.4 K/uL Monocytes # (Auto) 0.71 0.11-0.59 K/uL Eosinophils # (Auto) 0.01 0-0.5 K/uL Basophils # (Auto) 0.01 0-0.2 K/uL RDW Standard Deviation 50.9 36.4-46.3 fL RDW Coefficient of Variation 18.7 11.5-14.5 % Immature Granulocyte % (Auto) 0.3 % Immature Granulocyte # (Auto) 0.03 0.00-0.02 K/uL Sodium Level 138 136-145 mmol/L Potassium Level 3.8 3.5-5.1 mmol/L Chloride Level 107 98-107 mmol/L Carbon Dioxide Level 22 21-32 mmol/L Anion Gap 8.0 3-11 mmol/L Blood Urea Nitrogen 12 7-18 mg/dl Creatinine 0.62 0.60-1.20 mg/dl Est Creatinine Clear Calc Drug Dose 137.8 ml/min Estimated GFR () 129.8 Estimated GFR (Non- 112.0 BUN/Creatinine Ratio 18.9 10-20 Random Glucose 102 70-99 mg/dl Calcium Level 9.2 8.5-10.1 mg/dl Phosphorus Level 2.7 2.5-4.9 mg/dl Magnesium Level 2.3 1.8-2.4 mg/dl Albumin 3.0 3.4-5.0 gm/dl ASSESSMENT and PLAN: s/p LLE fem art endarterectomy with bovine patch LLE fem art occlusion Pt doing well post op. OK for d/c from vascular standpoint. Recommend pt on coumadin with lovenox bridge at d/c and follow up at anticoagulation clinic for further recs. Will see in office in 2 week for reeval and staple removal. Please call if needed.
[2017-05-30 12:18] VITALS: BP 127/72; PULSE 84; TEMP 36.7; O2SAT 96
--- NOTE | 2017-05-30 13:13 | Discharge Instructions ---
Discharge Instructions Date of Service May 30, 2017. Admission Reason for Admission: Femoral Popliteal Artery Thrombus Discharge Discharge Diagnosis / Problem: Arterial occlusion (SFA) Discharge Goals Goal(s): Therapeutic intervention Activity Recommendations Activity Limitations: per Instructions/Follow-up section Lifting Limitations: until after follow-up appointment Exercise/Sports Limitations: gradually increase as tolerated . Instructions / Follow-Up Instructions / Follow-Up Please see Dr. Goldstein on June 04 at 11AM for hospital follow up. Please follow up with Vascular Surgery for staple removal as advised Please expect a call from Coagulation clinic regarding scheduling follow up and for labs Current Hospital Diet Patient's current hospital diet: AHA Diet (Heart Healthy) Discharge Diet Recommended Diet: AHA Diet (Heart Healthy) Procedures Procedures Performed: Left Common Femoral Endarterectomy with Graft Pending Studies Studies pending at discharge: no Medical Emergencies . Who to Call and When: Medical Emergencies: If at any time you feel your situation is an emergency, please call 911 immediately. . Non-Emergent Contact Non-Emergency issues call your: Primary Care Provider . . "Provider Documentation" section prepared by Sulema Pham. . VTE Core Measure Inpt VTE Proph given/why not?: Other Anticoagulation [place] Drug Monitoring Program Search Results: no issues identified
[2017-05-30] MEDS ORDERED: NICO21DI4 TD (13:19)
[2017-05-30] MEDS ORDERED: CMD5 PO (13:19)
[2017-05-30] MEDS ORDERED: ULT50X PO (13:19)
[2017-05-30] MEDS ORDERED: ENOX80IN INJ (13:19)
--- NOTE | 2017-05-30 13:31 | Anesthesiology Progress Note ---
Anesthesia Post Op Note Date & Time May 30, 2017 at 13:29 Vital Signs Pain Intensity: 7.0 Vital Signs Past 12 Hours Date Time Temp Pulse Resp B/P (MAP) Pulse Ox O2 Delivery O2 Flow Rate FiO2 05/30/17 12:18 36.7 84 18 127/72 (90) 96 Room Air 05/30/17 08:44 Room Air 05/30/17 08:27 36.9 74 18 131/77 (95) 94 Room Air 05/30/17 03:08 36.8 79 16 126/69 (88) 94 Room Air Notes Mental Status: alert / awake / arousable, participated in evaluation Pt Amnestic to Procedure: Yes Nausea / Vomiting: adequately controlled Pain: adequately controlled Airway Patency, RR, SpO2: stable & adequate BP & HR: stable & adequate Hydration State: stable & adequate Awake alert, hopeful to be discharged. Discomfort with movement, at rest states pain score 2. Controlled with medication. No complaints with anesthesia care.
[2017-05-30 13:41] VITALS: BP 127/72; PULSE 84; TEMP 36.7; O2SAT 96
--- NOTE | 2017-05-30 14:14 | Discharge Summary ---
Discharge Summary Date of Service May 30, 2017. Discharge Summary Admission Date: May 26, 2017 at 22:35 Discharge Date: May 30, 2017 Discharge Disposition: Home Principal Diagnosis: SFA occlusion Procedures: SFA endarterectomy, LLE arteriogram Pending Studies/Follow-Up: Coagulation clinic follow up, PTINR check in 3-5 days Medication Reconciliation New Medications: Enoxaparin (Lovenox) 80 Mg/0.8 Ml Inj 80 MG INJ Q12, #14 DOSE Warfarin Sod (Coumadin) 5 Mg Tab 1 TAB PO DAILY, #30 TABS Nicotine (Nicoderm Cq) 21 Mg/24 Hr Dis 1 PATCH TD QAM, #30 PATCH Tramadol HCl (Tramadol HCl) 50 Mg Tab 25 MG PO Q6H PRN for Pain, #14 TAB Admission Information HPI (per Admitting provider): HISTORY OF PRESENT ILLNESS: Medical history significant for hypercoagulable state (history of prothrombin mutation, recurrent miscarriages, arterial clot) peripheral vascular disease status post surgery, ongoing tobacco abuse, chronic iron deficiency anemia, medication noncompliance. Recent confinement last July 2015 for acute left lower extremity superficial femoral artery thrombosis status post thrombolysis, embolectomy and stent placement. Patient discharged on Plavix initially. Outpatient [facility] Hematology evaluation requested by PCP following discharge for evaluation of arterial thrombosis. Outpatient workup showed iron deficiency anemia, iron tablets recommended, Patient later referred to Coumadin clinic for anticoagulation for arterial clots which patient complied with for a few months. She stopped Coumadin later on because she felt that she did not need it anymore. Last 2 days, patient noted worsening left lower extremity pain even at rest. No chest pain, no shortness of breath, no fever, no chills, no unusual swelling. No changes in leg sensation or temperature. No trauma. At the Emergency Room, ultrasound showed advanced PVD with complete thrombosis of distal common femoral artery proximal popliteal artery occluded, stent SFA. IV heparin started in the ER following recommendations of vascular surgeon on- call. MEDICAL HISTORY: As above. SURGERIES: Vascular procedures. HOME MEDICATIONS: None. ALLERGIES: PATIENT IS ALLERGIC TO ASPIRIN, NAPROXEN. FAMILY HISTORY: Breast cancer, diabetes. PERSONAL AND SOCIAL HISTORY: One pack daily. No chronic intake of alcoholic beverages. 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 REVIEW OF SYSTEMS: As per HPI All 10 systems reviewed. All other ROS negative. PHYSICAL EXAMINATION: VITAL SIGNS: Blood pressure was noted to be 160/77, later 137/72, pulse rate 81, RR 18, temperature 37.4, sats 100 on room air. GENERAL: Noted to be slightly anxious, no respiratory distress, looks older than stated age. SKIN: Pallor. Warm. HEENT: Pale palpebral conjuctivae. No ptosis. Dry mucosa. NECK: Supple neck. Nontender. HEART: Regular rate and rhythm. No murmur. ABDOMEN: Soft, nontender. EXTREMITIES: Erythematous digits of both feet. No tenderness. No unusual swelling. Decreased pedal pulses noted on the left lower extremity. NE : Coherent no gross focality Hospital Course LLE SFA OCCLUSION/THROMBOSIS: with LLE ischemia and rest pain -recurrent arterial thrombosis in setting of known hypercoagulable state and prothrombin mutation as well as noncompliance with anticoagulation -PVD S/P surgery; had surgery again today with endarterectomy and graft of the SFA -Left Lower Extremity Arteriogram, Mechanical Closure for Right Femoral Artery on 05/28/17 -admits to non compliance with Coumadin (was on Plavix and Coumadin previously) -Counselled on need to quit smoking -need statin in addition to possible Plavix and Coumadin as able -was on IV heparin today; restart coumadin + lovenox -Vascular surgery consulted, appreciate intervention -pain control HYPOKALEMIA: -replete and monitor TOBACCO DEPENDANCE: -counseled to quit smoking -Nicotine patch CHRONIC ANEMIA: -hx of Iron deficiency -Monitor PHYSICAL EXAM ON DAY OF DISCHARGE: GENERAL: Patient is in no acute distress. HEENT: No acute trauma, normocephalic, mucous membranes moist, no nasal congestion, no scleral icterus, conjunctivae clear. NECK: No stridor, trachea is midline, no JVD. LUNGS: Clear to auscultation bilaterally, no wheeze, no rhonchi, breath sounds equal. HEART: Without murmurs gallops or rubs, regular rate and rhythm. ABDOMEN: Soft, nontender, bowel sounds positive, no hepatosplenomegaly EXTREMITIES: No cyanosis or edema, distal pulses palpable NEUROLOGIC: Oriented x 3, no acute motor or sensory deficits, no focal weakness. SKIN: No rash, no jaundice, no diaphoresis. Total time spent on discharge = 37 This includes examination of the patient, discharge planning, medication reconciliation, and communication with other providers. Discharge Instructions See patient instructions
--- NOTE | 2017-06-01 09:59 | Progress Note ---
Progress Note Date of Service Jun 01, 2017. Progress Note I assisted Dr Jaimes with Latanya Suellen's Left Common Femoral Endarterectomy with bovine patch angioplasty on 05/29/17, d/t lack of resident availability.
== END 2017-05-30 15:15 | disposition home or self-care (01) | DRG 253 ==
LOC: C.EDB 17:22 → C.MSN 22:35 → ENRESERV 23:07
PROVIDERS: ADMIT Internal Medicine; ATTEND Internal Medicine
PROC: B41G1ZZ Fluoroscopy of Left Lower Extremity Arteries using Low Osmolar Contrast (ICD-10-PCS; principal; 2017-05-28 10:30)
PROC: 04CY0ZZ Extirpation of Matter from Lower Artery, Open Approach (ICD-10-PCS; 2017-05-29)
PROC: 04CL0Z6 (ICD-10-PCS; 2017-05-29)
PROC: 04UL0KZ Supplement Left Femoral Artery with Nonautologous Tissue Substitute, Open Approach (ICD-10-PCS; 2017-05-29)
DX: I74.3 Embolism and thrombosis of arteries of the lower extremities (principal); D68.52 Prothrombin gene mutation; E87.6 Hypokalemia; I73.9 Peripheral vascular disease, unspecified; D50.9 Iron deficiency anemia, unspecified; F17.210 Nicotine dependence, cigarettes, uncomplicated; Z71.6 Tobacco abuse counseling; Z91.14 Patient's other noncompliance with medication regimen; Z95.820 Peripheral vascular angioplasty status with implants and grafts; Z86.718 Personal history of other venous thrombosis and embolism; Z88.6 Allergy status to analgesic agent

== ENCOUNTER 2017-07-29 13:59 | Emergency (ER) | payer OTHER ==
[~2017-07-29] VITALS: Ht 170.2 cm; Wt 75.8 kg
[~2017-07-29 13:59] MED LIST changes: -CLOP1TAB15 PO; +CMD5 PO; +ENOX80IN INJ; +NICO21DI4 TD; +ULT50X PO
[2017-07-29] MEDS ORDERED: SODIUM CHLORIDE 0.9% 1000ML 1,000 ML IV STA (14:05)
[2017-07-29] MEDS ORDERED: ONDANSETRON INJ 2 MG/ML 2 ML VIAL IV STA (14:05)
[2017-07-29] MEDS ORDERED: MoRPHine SULFATE 10 MG/ML CARP/VIAL IV STA ×2 (14:05→14:57)
[2017-07-29 14:07] VITALS: TEMP 36.6; Ht 170.2 cm; Wt 75.8 kg
--- NOTE | 2017-07-29 14:08 | EMERGENCY ROOM VISIT NOTE ---
History Report prepared by Isaias: Ifrah Gordon Under the Supervision of: Dr. Steven Womack M.D. First contact with patient: 14:00 Stated Complaint: ABDOMINAL PAIN History of Present Illness The patient is a 42 year old female who presents to the Emergency Room with complaints of persistent left lower abdominal pain that started 3 hours ago. The patient rates her pain a 10/10 in severity. The patient denies any abdominal pain over the last few days. She notes she had an ovarian cyst that ruptured 15 years ago. She states the pain she is feeling today is similar. The patient notes she is vomiting. She denies having a fever. The patient had surgery for a blood clot in her femoral artery at the end of May. She states she has been on Coumadin since the surgery. She denies taking any regularly pain medication. Source of History: patient Onset: 3 hours ago Position: abdomen (LLQ) Symptom Intensity: 10/10 Timing: other (persistent) Associated Symptoms: + vomiting, No fevers Review of Systems See HPI for pertinent positives & negatives. A total of 10 systems reviewed and were otherwise negative. Past Medical & Surgical Medical Problems: (1) Femoral artery occlusion, left (2) Femoral popliteal artery thrombus (3) History of - miscarriage (4) Sciatica Surgical Problems: (1) Hx of endarterectomy (2) Status post arterial stent Family History FH: cancer FH: diabetes mellitus Social History Smoking Status: Current Every Day Smoker Alcohol Use: none Marital Status: in relationship Housing Status: lives with family Occupation Status: employed Current/Historical Medications Scheduled Warfarin Sod (Jantoven), 5 MG PO DAILY Allergies Coded Allergies: Aspirin (Verified Allergy, Unknown, SWELLING, CAN TAKE IBU PER PATIENT, ) Naproxen (Verified Allergy, Unknown, CAN TAKE IBU PER PATIENT, 05/26/17) Physical Exam Vital Signs Date Time Temp Pulse Resp B/P (MAP) Pulse Ox O2 Delivery O2 Flow Rate FiO2 07/29/17 17:33 109 18 175/89 91 Room Air 07/29/17 16:20 85 18 181/85 99 Room Air 07/29/17 14:14 77 07/29/17 14:07 36.6 76 22 142/74 99 Room Air Physical Exam GENERAL: Patient is well appearing and in moderate/severe distress. She is driving around in bed. EYES: No scleral icterus, unremarkable pupils. ENT: Mucous membranes moist, no nasal congestion. NECK: No masses appreciated, no meningismus, trachea is midline. RESPIRATORY: No dyspnea. Clear to auscultation and equal bilaterally. No wheeze , no rhonchi. Hyperventilating at times. CARDIOVASCULAR: Regular rate and rhythm. No murmurs, rubs, gallops appreciated. GASTROINTESTINAL: Abdomen soft, nontender, no peritonitis. Bowel sounds positive. No masses appreciated. ABDOMEN: Moderate LLQ tenderness to palpation and mild diffuse tenderness to palpation. BACK: No midline tenderness, no CVA tenderness EXTREMITIES: Normal motion all extremities, no cyanosis, no edema. NEUROLOGIC: Alert and oriented, no acute motor or sensory deficits, no focal weakness, cranial nerves grossly intact. SKIN: No rash, no jaundice, no diaphoresis. Medical Decision & Procedures ER Provider Diagnostic Interpretation: Radiology results and stated below per my review and radiologist interpretation: ABD/PELVIS IV CONTRAST ONLY CLINICAL HISTORY: 42 years-old Female presenting with LLQ pain sudden onset. On coumadin. TECHNIQUE: Multidetector CT of the abdomen and pelvis was performed after the administration of intravenous contrast. IV contrast: 118 mL of Optiray 320. A dose lowering technique was used consistent with the principles of ALARA (as low as reasonably achievable). COMPARISON: None. CT DOSE (mGy.cm): The estimated cumulative dose is 377.66 mGy.cm. 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 Lung bases: Minimal basilar opacities, likely atelectasis. Normal heart size. No pericardial or pleural effusion. Liver: Normal morphology. No liver lesion. Patent hepatic vasculature. Biliary: No intrahepatic or extrahepatic biliary ductal dilatation. Gallbladder contains gallstones. Pancreas: Normal. Spleen: Normal. Adrenal glands: Normal. Kidneys and ureters: Hypodensity in the right kidney likely simple cyst. No right nephrolithiasis or hydronephrosis. The left kidney is enlarged with a delayed phase of enhancement. Minimal perinephric fluid. Moderate pelviectasis with mild calyectasis. No left nephrolithiasis. Left ureter is dilated with a calcification in the region of the distal left ureter the level of the pelvis (series 3 image 3-4). It is difficult to confirm this definitively as within the ureter and a phlebolith. Right ureter normal. Bladder: Incompletely evaluated secondary to underdistention. No bladder calculus. Pelvic organs: Uterus and ovaries normal. Bowel: Normal appendix. No bowel obstruction. Peritoneal cavity: No free fluid or intraperitoneal gas. Lymph nodes: No enlarged lymph nodes in the abdomen or pelvis. Vasculature: Atherosclerosis of the normal caliber abdominal aorta. Poor opacification or occlusion of the left superificial femoral artery. IVC patent. Abdominal wall: Infiltration of the left inguinal region likely from recent vascular access. Musculoskeletal: Normal. IMPRESSION: 1. Left hydroureteronephrosis. Questionable punctate calcification in the region of the left ureter, which is equivocal for a ureteral calculus. If this does represent a ureteral calculus, there is resultant obstruction of the left urinary collecting system. If this alternatively represent a phlebolith, there is nonetheless concern for left hydroureteronephrosis though the etiology would be unknown. Superimposed infection cannot be excluded. Correlate with urinalysis. 2. Evidence of recent vascular access of the left inguinal region. Findings concerning for occlusion of the left superficial femoral artery. The report will be called/faxed according to standard departmental protocol. Electronically signed by: Fred Gomes M.D. 07/29/2017 2:58 PM Dictated Date/Time: 07/29/2017 2:46 PM Laboratory Results 07/29/17 14:10 Red Blood Count 4.42, Mean Corpuscular Volume 72.9, Mean Corpuscular Hemoglobin 22.6, Mean Corpuscular Hemoglobin Concent 31.1, Mean Platelet Volume 8.4, Neutrophils (%) (Auto) 83.7, Lymphocytes (%) (Auto) 11.4, Monocytes (%) (Auto) 3.6, Eosinophils (%) (Auto) 0.7, Basophils (%) (Auto) 0.4, Neutrophils # (Auto) 10.26, Lymphocytes # (Auto) 1.40, Monocytes # (Auto) 0.44, Eosinophils # (Auto) 0.08, Basophils # (Auto) 0.05 07/29/17 14:10 Test 07/29/17 14:10 07/29/17 14:22 07/29/17 16:30 White Blood Count 12.25 K/uL (4.8-10.8) Red Blood Count 4.42 M/uL (4.2-5.4) Hemoglobin 10.0 g/dL (12.0-16.0) Hematocrit 32.2 % (37-47) Mean Corpuscular Volume 72.9 fL (80-100) Mean Corpuscular Hemoglobin 22.6 pg (25-34) Mean Corpuscular Hemoglobin Concent 31.1 g/dl (32-36) Platelet Count 395 K/uL (130-400) Mean Platelet Volume 8.4 fL (7.4-10.4) Neutrophils (%) (Auto) 83.7 % Lymphocytes (%) (Auto) 11.4 % Monocytes (%) (Auto) 3.6 % Eosinophils (%) (Auto) 0.7 % Basophils (%) (Auto) 0.4 % Neutrophils # (Auto) 10.26 K/uL (1.4-6.5) Lymphocytes # (Auto) 1.40 K/uL (1.2-3.4) Monocytes # (Auto) 0.44 K/uL (0.11-0.59) Eosinophils # (Auto) 0.08 K/uL (0-0.5) Basophils # (Auto) 0.05 K/uL (0-0.2) RDW Standard Deviation 48.4 fL (36.4-46.3) RDW Coefficient of Variation 18.2 % (11.5-14.5) Immature Granulocyte % (Auto) 0.2 % Immature Granulocyte # (Auto) 0.02 K/uL (0.00-0.02) Prothrombin Time 14.4 SECONDS (9.0-12.0) Prothromb Time International Ratio 1.4 (0.9-1.1) Activated Partial Thromboplast Time 28.7 SECONDS (21.0-31.0) Partial Thromboplastin Ratio 1.1 Est Creatinine Clear Calc Drug Dose 92.7 ml/min Estimated GFR () 99.4 Estimated GFR (Non- 85.7 BUN/Creatinine Ratio 10.9 (10-20) Calcium Level 8.8 mg/dl (8.5-10.1) Total Bilirubin 0.3 mg/dl (0.2-1) Direct Bilirubin < 0.1 mg/dl (0-0.2) Aspartate Amino Transf (AST/SGOT) 8 U/L (15-37) Alanine Aminotransferase (ALT/SGPT) 17 U/L (12-78) Alkaline Phosphatase 102 U/L (45-117) Total Protein 7.7 gm/dl (6.4-8.2) Albumin 3.5 gm/dl (3.4-5.0) Lipase 169 U/L (73-393) Human Chorionic Gonadotropin, Qual NEG (NEG) Bedside Hemoglobin 11.2 g/dl (12.0-16.0) Bedside Hematocrit 33 % (37-47) Bedside Sodium 140 mEq/L (135-144) Bedside Potassium 3.2 mEq/L (3.3-5.0) Bedside Chloride 105 mEq/L (101-112) Bedside Total CO2 21 mEq/l (24-31) Anion Gap 18.0 mmol/L (16-25) Bedside Blood Urea Nitrogen 8 mg/dl (7-18) Bedside Creatinine 0.7 mg/dl (0.6-1.3) Bedside Glucose (other) 115 mg/dl (70-99) Bedside Ionized Calcium (Ana) 1.10 mmol/l (1.12-1.32) Urine Color YELLOW Urine Appearance CLEAR (CLEAR) Urine pH 5.0 (4.5-7.5) Urine Specific [place] > 1.045 (1.000-1.030) Urine Protein NEG (NEG) Urine Glucose (UA) NEG (NEG) Urine Ketones NEG (NEG) Urine Occult Blood NEG (NEG) Urine Nitrite NEG (NEG) Urine Bilirubin NEG (NEG) Urine Urobilinogen NEG (NEG) Urine Leukocyte Esterase NEG (NEG) Urine WBC (Auto) 5-10 /hpf (0-5) Urine RBC (Auto) 0-4 /hpf (0-4) Urine Hyaline Casts (Auto) 0 /lpf (0-5) Urine Epithelial Cells (Auto) >30 /lpf (0-5) Urine Bacteria (Auto) NEG (NEG) Urine Pathogenic Casts /lpf (0) Laboratory results as reviewed by me. Medications Administered Medications (Trade) Dose Ordered Sig/Ladarius Route Start Time Stop Time Status Last Admin Dose Admin Sodium Chloride 1,000 ml @ 999 mls/hr Q1H1M STAT IV 07/29/17 14:05 07/29/17 15:05 DC 07/29/17 14:20 999 MLS/HR Morphine Sulfate (MoRPHine SULFATE INJ) 8 mg NOW STAT IV 07/29/17 14:05 07/29/17 14:06 DC 07/29/17 14:22 8 MG Ondansetron HCl (Zofran Inj) 4 mg NOW STAT IV 07/29/17 14:05 07/29/17 14:06 DC 07/29/17 14:20 4 MG Morphine Sulfate (MoRPHine SULFATE INJ) 8 mg NOW STAT IV 07/29/17 14:57 07/29/17 14:58 DC 07/29/17 15:19 8 MG Morphine Sulfate (MoRPHine SULFATE INJ) 4 mg NOW STAT IV 07/29/17 16:14 07/29/17 16:15 DC 07/29/17 16:26 4 MG Oxycodone HCl (Roxicodone Immediate Rel 5MG Home Pack) 1 homepack UD ONCE PO 07/29/17 17:30 07/29/17 17:31 DC 07/29/17 17:33 1 HOMEPACK ED Course 1400: The patient was evaluated in room C2B. A complete history and physical exam was performed. 1405: The patient states there is no way she can be because her is in skilled nursing. She is also repeating "please hurry, please hurry" despite the fact that nurses are placing an IV. 1455: Nurse called and states the patient was asking for more pain medication. 1515: I reevaluated the patient. She states her belly pain eased up with morphine but is coming back and is radiating to back. She notes this is nothing like her arterial occlusion of left leg. I rechecked her legs and they are warm , non-tender with full range of motion, strong femoral pulses, and weak, if any petal pulses. She notes they usually need a Doppler to find them. She also notes she just started having rectal bleeding since she got to the ED. She states she doesn't get hemorrhoids and she has never had rectal bleeding before. 1610: Patient reports her pain has started to return. 1725: I reevaluated the patient and she is feeling much better. She notes the pain has resolved and states she would like to go home despite swelling in kidney and pain she is having but says she cannot stay. She notes she will follow up with her PCP for a recheck and will return to the ED if pain worsens. We discussed at length the risk of narcotics. She once again states she has no pain in left leg or any symptoms of her occlusion of artery. 1731: Discussed results and discharge instructions: She verbalized understanding and agreement. The patient is ready for discharge. Medical Decision Differential: Diverticulitis, Ovarian Torsion, Arterial Occlusion, MSK, , UTI , Renal Colic, Bowel Obstruction, Aortic Pathology, amongst other pathologies entertained. 42 yr old female arrives with complain of left flank pain, worse in LLQ but reacting to palpation of entire abdomen. Sent urgently to CT revealing left hydronephrosis of uncertain cause as questionable distal calculus. There is concern for occlusion of artery but she is adamant this is not like her previous occlusions, she has no leg nor thigh pain, no weakness nor coolness in extremity. Unable to feel pulses in either feet but she states this is normal. She is very sure this is not occlusion of her femoral artery, and I feel that given her symptoms that it does not go with occlusion. Discussed mildly low INR will have her follow up with [facility]. She after several hours is feeling much better. Did require moderately large amounts of narcotics but doing quiet well long after them. I suspect this was stone related though it is odd no stone seen or blood in urine. Advised she come in for further evaluation/treatment but she adamantly refuses as she states she feels better and wants to go home. Seems reasonable having a few Oxy IR for pain control but aware if worsening she just needs to return for repeat evaluation. Reviewed at length symptoms requiring return and that we are always here to re- eval. Stressed follow up with PCP. [place] Drug Monitoring Program Search Results: patient reviewed within database, no issues identified Drug Monitoring Findings: Single Tramadol prescription at end of May. Medication Reconcilliation Current Medication List: was personally reviewed by me Impression Primary Impression: Hydronephrosis, left Additional Impression: Acute left flank pain Scribe Attestation The scribe's documentation has been prepared under my direction and personally reviewed by me in its entirety. I confirm that the note above accurately reflects all work, treatment, procedures, and medical decision making performed by me. Departure Information Dispostion Home / Self-Care Referrals Kin Goldstein M.D.([facility]) (PCP) Patient Instructions ED Flank Pain Uncertain Cause, My [facility] Additional Instructions Your pain is likely due to a swollen left kidney which is probably caused by a kidney stone blocking it though by CT Scan it is difficult to be sure that there is a stone there. Return immediately if worsening pain, fevers, vomiting, or other concerns. It is very important you follow up with your primary provider in the next few days for recheck. You have received a narcotic pain medication. These medications may cause drowsiness and should not be used with other sedative medications. Do not drive , drink alcohol, perform dangerous activities, nor make important decisions after taking these medications. termite helper use or inappropriate use may lead to addiction. Problem Qualifiers
[2017-07-29] MEDS ORDERED: OPTIRAY 320 IV PRN (14:15)
[2017-07-29 14:33] LABS: ISTAT CREATININE 0.7 mg/dl (0.6-1.3); ISTAT IONIZED CALCIUM 1.1 mmol/l (1.12-1.32); ISTAT POTASSIUM 3.2 mEq/L (3.3-5.0)
[2017-07-29 14:33] LABS: BASO % 0.4 %; BASO ABS # 0.05 K/uL (0-0.2); EOS % 0.7 %; EOS ABS # 0.08 K/uL (0-0.5); HEMATOCRIT 32.2 % (37-47); IG# 0.02 K/uL (0.00-0.02); LYMPH % 11.4 %; MEAN CELL VOLUME 72.9 fL (80-100); MEAN CORPUSCULAR HEMOGLOBIN 22.6 pg (25-34); MEAN CORPUSCULAR HGB CONC 31.1 g/dl (32-36); MEAN PLATELET VOLUME 8.4 fL (7.4-10.4); MONO % 3.6 %; MONO ABS # 0.44 K/uL (0.11-0.59); NEUT % 83.7 %; NEUT ABS # 10.26 K/uL (1.4-6.5); PLATELET COUNT 395 K/uL (130-400); RED CELL DISTRIBUTION WIDTH CV 18.2 % (11.5-14.5); RED CELL DISTRIBUTION WIDTH SD 48.4 fL (36.4-46.3); WHITE BLOOD COUNT 12.25 K/uL (4.8-10.8)
[2017-07-29 14:37] LABS: INR 1.4 (0.9-1.1); PTT PATIENT 28.7 SECONDS (21.0-31.0)
[2017-07-29 14:49] LABS: ALBUMIN 3.5 gm/dl (3.4-5.0); ALT/SGPT 17 U/L (12-78); BLOOD UREA NITROGEN 9 mg/dl (7-18); CALCIUM 8.8 mg/dl (8.5-10.1); CARBON DIOXIDE 23 mmol/L (21-32); CREATININE 0.84 mg/dl (0.60-1.20); GLUCOSE 110 mg/dl (70-99); LIPASE 169 U/L (73-393); POTASSIUM 3.2 mmol/L (3.5-5.1); SODIUM 138 mmol/L (136-145)
[2017-07-29 14:52] LABS: ALKALINE PHOSPHATASE 102 U/L (45-117); AST/SGOT 8 U/L (15-37); TOTAL PROTEIN 7.7 gm/dl (6.4-8.2)
--- NOTE | 2017-07-29 14:59 | DIAGNOSTIC IMAGING REPORT ---
ABD/PELVIS IV CONTRAST ONLY CLINICAL HISTORY: 42 years-old Female presenting with LLQ pain sudden onset. On coumadin. TECHNIQUE: Multidetector CT of the abdomen and pelvis was performed after the administration of intravenous contrast. IV contrast: 118 mL of Optiray 320. A dose lowering technique was used consistent with the principles of ALARA (as low as reasonably achievable). COMPARISON: None. CT DOSE (mGy.cm): The estimated cumulative dose is 377.66 mGy.cm. 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 Lung bases: Minimal basilar opacities, likely atelectasis. Normal heart size. No pericardial or pleural effusion. Liver: Normal morphology. No liver lesion. Patent hepatic vasculature. Biliary: No intrahepatic or extrahepatic biliary ductal dilatation. Gallbladder contains gallstones. Pancreas: Normal. Spleen: Normal. Adrenal glands: Normal. Kidneys and ureters: Hypodensity in the right kidney likely simple cyst. No right nephrolithiasis or hydronephrosis. The left kidney is enlarged with a delayed phase of enhancement. Minimal perinephric fluid. Moderate pelviectasis with mild calyectasis. No left nephrolithiasis. Left ureter is dilated with a calcification in the region of the distal left ureter the level of the pelvis (series 3 image 3-4). It is difficult to confirm this definitively as within the ureter and a phlebolith. Right ureter normal. Bladder: Incompletely evaluated secondary to underdistention. No bladder calculus. Pelvic organs: Uterus and ovaries normal. Bowel: Normal appendix. No bowel obstruction. Peritoneal cavity: No free fluid or intraperitoneal gas. Lymph nodes: No enlarged lymph nodes in the abdomen or pelvis. Vasculature: Atherosclerosis of the normal caliber abdominal aorta. Poor opacification or occlusion of the left superificial femoral artery. IVC patent. Abdominal wall: Infiltration of the left inguinal region likely from recent vascular access. Musculoskeletal: Normal. IMPRESSION: 1. Left hydroureteronephrosis. Questionable punctate calcification in the region of the left ureter, which is equivocal for a ureteral calculus. If this does represent a ureteral calculus, there is resultant obstruction of the left urinary collecting system. If this alternatively represent a phlebolith, there is nonetheless concern for left hydroureteronephrosis though the etiology would be unknown. Superimposed infection cannot be excluded. Correlate with urinalysis. 2. Evidence of recent vascular access of the left inguinal region. Findings concerning for occlusion of the left superficial femoral artery. The report will be called/faxed according to standard departmental protocol. Electronically signed by: Fred Gomes M.D. 07/29/2017 2:58 PM Dictated Date/Time: 07/29/2017 2:46 PM
[2017-07-29] MEDS ORDERED: MoRPHine SULFATE 4 MG/ML 1 ML CARP\\VIAL IV STA (16:14)
[2017-07-29] MEDS ORDERED: OXYCODONE IR HOME PACK PO ONE (17:30)
[2017-07-29 17:33] VITALS: BP 175/89; PULSE 109; O2SAT 91
[2017-08-03] MEDS ORDERED: LCTX PO (13:16)
[2017-08-03] MEDS ORDERED: CIPR-255 PO (13:16)
[2017-08-03] MEDS ORDERED: PHEN-1043 PO (13:16)
[2017-08-03] MEDS ORDERED: SULF800T23 PO (13:21)
[2017-08-03] MEDS ORDERED: MCRK20 PO (13:31)
== END 2017-07-29 17:38 | disposition home or self-care (01) ==
LOC: EDBD 13:59 → C.EDC 14:01
DX: N13.30 Unspecified hydronephrosis (principal); R79.1 Abnormal coagulation profile; F17.200 Nicotine dependence, unspecified, uncomplicated; Z79.01 Long term (current) use of anticoagulants; Z86.718 Personal history of other venous thrombosis and embolism; Z88.6 Allergy status to analgesic agent; Z88.1 Allergy status to other antibiotic agents; Z83.3 Family history of diabetes mellitus

== ENCOUNTER 2017-07-31 14:21 | Inpatient (IN) | payer OTHER ==
[~2017-07-31] VITALS: Ht 182.9 cm; Wt 80.4 kg
[2017-07-31] VITALS (9 sets, daily range): BP systolic 104–205; BP diastolic 62–76; PULSE 88–168; TEMP 36.6–39.3; O2SAT 94–98; Ht 182.9 cm; Wt 80.4 kg
[2017-07-31] MEDS ORDERED: WARF5TAB7 PO (14:25)
[2017-07-31] MEDS ORDERED: SODIUM CHLORIDE 0.9% 1000ML 500 ML IV ONE (14:46)
[2017-07-31] MEDS ORDERED: ACETAMINOPHEN 500 MG TAB PO STA (14:48)
[2017-07-31] MEDS ORDERED: CEFTRIAXONE SOD INJ 1 GM ADDVIAL IV STA (14:50)
[2017-07-31] MEDS ORDERED: ACETAMINOPHEN IV 650 MG in EMPTY BAG 0 ML IV STA (15:10)
--- NOTE | 2017-07-31 15:13 | History & Physical Bridge Note ---
H&P Re-Evaluation Bridge Note: I have examined the patient, reviewed the History & Physical and in the interval since the performance of the History & Physical I have noted the following changes of clinical significance: Left hydronephrosis with severe bladder thickening and sepsis with tachycardia and fever. Urgent stent placement with cystoscopy for presumed septic obstruction.
--- NOTE | 2017-07-31 15:14 | EMERGENCY ROOM VISIT NOTE ---
History Report prepared by Isaias: Deana Waters Under the Supervision of: Dr. Shaun Martinez M.D. First contact with patient: 14:38 Chief Complaint: FEVER Stated Complaint: SEVERE LEFT SIDE PAIN, FEVER OF 103-104 History of Present Illness The patient is a 42 year old female who presents to the Emergency Room with complaints of persistent fever starting 3 days ago. The patient was seen in the ED 2 days ago and diagnosed with left hydronephrosis. She has had a fever of 103 -104 for the past 3 days. She is having left flank pain which worsens with coughing. She has had a decreased appetite. She has felt more thirsty than usual. She reports headache, body ache, and cough. She denies any urinary symptoms, vomiting, diarrhea, sore throat, or foot pain. 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 She does smoke. She denies any other medical problems. She denies any history of kidney problems. She denies any trauma. She denies any chance of . Source of History: patient Onset: 3 days ago Position: other (body temperature) Symptom Intensity: 103-104 Quality: other (fever) Timing: other (persistent) Associated Symptoms: + headache, + cough, No sorethroat, No vomiting, No diarrhea, No urinary symptoms Note: Pt reports left flank pain, decreased appetite, body aches. Review of Systems See HPI for pertinent positives & negatives. A total of 10 systems reviewed and were otherwise negative. Past Medical & Surgical Medical Problems: (1) Iron deficiency anemia (2) Sciatica (3) Tobacco use disorder Surgical Problems: (1) Hx of endarterectomy (2) Status post arterial stent Old medical records were reviewed. Nurse's notes were reviewed and I agree with. Family History FH: cancer FH: diabetes mellitus Social History Smoking Status: Current Every Day Smoker Alcohol Use: none Marital Status: in relationship Housing Status: lives with family Occupation Status: employed Current/Historical Medications Scheduled Warfarin Sod (Jantoven), 5 MG PO DAILY Allergies Coded Allergies: Aspirin (Verified Allergy, Unknown, SWELLING, CAN TAKE IBU PER PATIENT, ) Naproxen (Verified Allergy, Unknown, CAN TAKE IBU PER PATIENT, 05/26/17) Physical Exam Vital Signs Date Time Temp Pulse Resp B/P (MAP) Pulse Ox O2 Delivery O2 Flow Rate FiO2 07/31/17 15:27 117 24 129/68 99 Room Air 07/31/17 15:17 120 07/31/17 15:15 96 Room Air 07/31/17 15:14 120 26 117/65 96 Room Air 07/31/17 14:33 38.7 142 32 146/81 97 Physical Exam General: Mildly uncomfortable appearing young female in no acute distress. HEENT: Normal cephalic atraumatic. Pupils are equal round and reactive to light. Extraocular movements are intact. Oropharynx is pink with moist mucous membranes. No swelling of the mouth lips or tongue. Neck: Supple with a midline trachea. No meningeal signs or stiffness, no JVD or bruits. No Stridor. Chest: Clear to auscultation bilaterally. No wheezes or rhonchi. No increased work of breathing. Heart: regular rate and rhythm. Abdomen: Soft nontender, nondistended without rebound guarding or rigidity. Extremities: No cyanosis clubbing or edema. No calf tenderness or assymetry Spine/Back. Non tender to palpation. Tenderness to the left flank. Skin: Good turgor without rashes. Neurologic exam: Cranial nerves two through 12 are intact. Motor and sensation are intact and symmetrical throughout. Medical Decision & Procedures ER Provider Diagnostic Interpretation: X-ray results as stated below per interpretation by me and the radiologist: CHEST ONE VIEW PORTABLE CLINICAL HISTORY: Sepsis COMPARISON STUDY: No previous studies for comparison. FINDINGS: The heart is normal in size. There is no failure. There is no lobar consolidation. There are linear bibasilar opacities, likely representing subsegmental atelectasis. There are no pleural effusions.[ IMPRESSION: Basilar subsegmental atelectatic changes. Electronically signed by: Arnaldo Main M.D. 07/31/2017 3:47 PM Dictated Date/Time: 07/31/2017 3:46 PM Laboratory Results 07/31/17 14:55 Red Blood Count 4.21, Mean Corpuscular Volume 71.0, Mean Corpuscular Hemoglobin 22.1, Mean Corpuscular Hemoglobin Concent 31.1, Mean Platelet Volume 9.0, Neutrophils (%) (Auto) 92.4, Lymphocytes (%) (Auto) 4.1, Monocytes (%) (Auto) 2.8, Eosinophils (%) (Auto) 0.0, Basophils (%) (Auto) 0.1, Neutrophils # (Auto) 13.37, Lymphocytes # (Auto) 0.59, Monocytes # (Auto) 0.40, Eosinophils # (Auto) 0.00, Basophils # (Auto) 0.01 Test 07/31/17 14:55 07/31/17 14:58 White Blood Count 14.45 K/uL (4.8-10.8) Red Blood Count 4.21 M/uL (4.2-5.4) Hemoglobin 9.3 g/dL (12.0-16.0) Hematocrit 29.9 % (37-47) Mean Corpuscular Volume 71.0 fL (80-100) Mean Corpuscular Hemoglobin 22.1 pg (25-34) Mean Corpuscular Hemoglobin Concent 31.1 g/dl (32-36) Platelet Count 166 K/uL (130-400) Mean Platelet Volume 9.0 fL (7.4-10.4) Neutrophils (%) (Auto) 92.4 % Lymphocytes (%) (Auto) 4.1 % Monocytes (%) (Auto) 2.8 % Eosinophils (%) (Auto) 0.0 % Basophils (%) (Auto) 0.1 % Neutrophils # (Auto) 13.37 K/uL (1.4-6.5) Lymphocytes # (Auto) 0.59 K/uL (1.2-3.4) Monocytes # (Auto) 0.40 K/uL (0.11-0.59) Eosinophils # (Auto) 0.00 K/uL (0-0.5) Basophils # (Auto) 0.01 K/uL (0-0.2) RDW Standard Deviation 45.9 fL (36.4-46.3) RDW Coefficient of Variation 17.7 % (11.5-14.5) Immature Granulocyte % (Auto) 0.6 % Immature Granulocyte # (Auto) 0.08 K/uL (0.00-0.02) Platelet Estimate NORMAL Hypochromasia PRESENT Prothrombin Time 19.8 SECONDS (9.0-12.0) Prothromb Time International Ratio 1.9 (0.9-1.1) Activated Partial Thromboplast Time 43.7 SECONDS (21.0-31.0) Partial Thromboplastin Ratio 1.7 Total Bilirubin 0.9 mg/dl (0.2-1) Aspartate Amino Transf (AST/SGOT) 10 U/L (15-37) Alanine Aminotransferase (ALT/SGPT) 15 U/L (12-78) Alkaline Phosphatase 98 U/L (45-117) Total Protein 7.3 gm/dl (6.4-8.2) Albumin 2.7 gm/dl (3.4-5.0) Globulin 4.6 gm/dl (2.5-4.0) Albumin/Globulin Ratio 0.6 (0.9-2) Human Chorionic Gonadotropin, Qual NEG (NEG) Influenza Type A Antigen Neg for Influ A (NEG) Influenza Type B Antigen Neg for Influ B (NEG) Laboratory studies as stated above per my review. Medications Administered Medications (Trade) Dose Ordered Sig/Ladarius Route Start Time Stop Time Status Last Admin Dose Admin Sodium Chloride 500 ml @ 999 mls/hr Q31M ONCE IV 07/31/17 14:46 07/31/17 15:16 DC 07/31/17 15:03 999 MLS/HR Ceftriaxone Sodium (Rocephin Inj) 1 gm NOW STAT IV 07/31/17 14:50 07/31/17 14:51 DC 07/31/17 15:18 1 GM Acetaminophen 650 mg/Empty Bag 65 ml @ 260 mls/hr ONE STAT IV 07/31/17 15:10 07/31/17 15:24 DC 07/31/17 15:32 260 MLS/HR ECG Per My Interpretation Indication: tachycardia Rate (beats per minute): 119 Rhythm: sinus tachycardia Findings: nonspecific-ST abn, other (nonspecific T wave abn) Comparison ECG Date: no prior available ED Course 1440: Past medical records reviewed. The patient was evaluated in room B12A, and a complete history and physical examination were performed. 1446: NSS 500 ml @ 999 mls/hr IV. 1450: Rocephin Inj 1 gm IV. 1453: [facility] who says the other group is conference services coordinator. 1456: I discussed the patient's case with ETHEL Fuentes [facility]. She will speak with her attending and consider taking the patient to the OR. 1510: Acetaminophen 650 mg/Empty Bag 65 ml @ 260 mls/hr IV. 1519: ETHEL Fuentes of urology is at bedside. They will be taking the patient to the OR. 1522: I discussed the patient's case with ANAHI Watson hospitalist. The patient will be evaluated for further management. 1531: I reevaluated the patient. She is resting comfortably, waiting to go to the OR. Medical Decision Differentials include, but are not limited to; infection, sepsis, obstructive uropathy, influenza, pneumonia, kidney stone. THis Patient comes in as described above she has left flank pain. She was placed in room B12. She was seen 2 days ago for the similar and had an obstruction she said. she has had a fevers for the last day or so. On exam, she does have a fever and she is tachycardic. I am concerned about her having an infection plus and obstruction and thus sepsis as well. IV access was established and she was hydrated IV normal saline blood cultures were obtained as a full sepsis workup was obtained. I also immediately called urology and talked to Leslie Garg from urology is a is concerned she may need a urologic procedure the patient was kept n.p.o. She was given Tylenol IV due to the n.p.o. status. She was also given IV Rocephin for broad-spectrum antibiotic coverage. She was reassessed frequently. Urology promptly came to the ER and is going to take her straight to the OR and does not feel she needs another CT. Her white count was elevated at 14. She was a little anemic. She is also mildly hyperkalemic. Chest x-ray was unremarkable. With her fever and her obstruction on the left and left pain there is certainly concern about obstructive urologic process plus infection. She will be taken to the operating room Medication Reconcilliation Current Medication List: was personally reviewed by me Blood Pressure Screening Patient's blood pressure: Normal blood pressure Blood pressure disposition: Did not require urgent referral Consults Time Called: 1449 Consulting Physician: ETHEL Fuentes [facility] Returned Call: 1453 I discussed the patient's case with her. She will speak with her attending and consider taking the patient to the OR. Additional Consults: Time Called: 1520 Consulted Physician: ANAHI Watsonist Returned Call: 1520 Additional Comments: Discussed the patient's case. The patient will be evaluated for further management. Impression Primary Impression: Sepsis Additional Impression: Hydronephrosis with obstructing calculus Critical Care I have personally spent greater than 30 minutes of critical care time in the direct management of this patient. This includes bedside care, interpretation of diagnostic studies, and testing, discussion with consultants, patient, and family members, and other required patient management activities. This 30 minutes is in excess of all separately billable procedures. Scribe Attestation The scribe's documentation has been prepared under my direction and personally reviewed by me in its entirety. I confirm that the note above accurately reflects all work, treatment, procedures, and medical decision making performed by me. Departure Information Dispostion Other (OR) Referrals Kin Goldstein M.D.(BRITT) (PCP) Patient Instructions My [facility] Problem Qualifiers
[2017-07-31] MEDS ORDERED: PROPOFOL IV EMULSION 10 MG/ML 20 ML VIAL IV ONE ×2 (15:32→16:30)
[2017-07-31] MEDS ORDERED: FENTANYL CITRATE INJ 50 MCG/1 ML 2 ML VIAL ONE (15:32)
[2017-07-31] MEDS ORDERED: MIDAZOLAM HCL 1 MG/ML 2ML VIAL ONE (15:32)
[2017-07-31] MEDS ORDERED: Cysto-Conray II 17.2% 250ML BOTTLE ONE (15:35)
--- NOTE | 2017-07-31 15:35 | Urology Consultation ---
History General Date of Service: Jul 31, 2017. Chief Complaint: left flank pain, fevers Primary Care Physician: Kin Goldstein M.D.(BRITT) Pt seen a urologist before?: No History of Present Illness 42 yo female presents to [facility] ED with c/o fevers of 102-104F and left flank pain since her last ED visit on 07-29. She was seen in the ED at that time for flank pain and n/v. CT scan at that time showed left hydronephrosis with ? stone. Pt discharged home that day. She has no previous hx of stones. She is noted to be febrile at 38.7C and tachycardic on admission. No imaging repeated at this time. Imaging Imaging: CT (07-29-17) Laboratory Labs pending. Last 24 Hours Test 07/31/17 14:55 07/31/17 14:58 Problem List Medical Problems: (1) Arterial occlusion, lower extremity Status: Acute (2) Back pain with sciatica Status: Acute (3) Hydronephrosis, left Status: Acute (4) Leg pain Status: Acute Past History other (femoral artery occlusion-left, fem pop artery thrombus, sciatica, miscarriage) Past Surgical History: other (endarterectomy, s/p arterial stent) Family History FH: cancer FH: diabetes mellitus Social History Hx Tobacco Use In Past Year?: Yes (1.5 PPD) Smoking: other (current every day smoker) Alcohol: never Marital status: in relationship Housing status: lives with family Occupation status: employed Immunizations History of Influenza Vaccine: No History of Tetanus Vaccine?: No Allergies Coded Allergies: Aspirin (Verified Allergy, Unknown, SWELLING, CAN TAKE IBU PER PATIENT, ) Naproxen (Verified Allergy, Unknown, CAN TAKE IBU PER PATIENT, 05/26/17) Medications Home Medications: Home Meds and Scripts Medications Dose Route/Sig Max Daily Dose Days Date Category Dose Instructions Jantoven (Warfarin Sodium) 5 Mg Tab 5 Mg PO DAILY 07/29/17 Reported TAKE 5 MG EVERY DAY OR OTHERWISE DIRECTED TO TAKE BY ANTICOAGULATION CLINIC/MD Review of Systems Review of Systems Constitutional: + fever, + chills Eyes: No double vision Neurological: No dizzy Endocrine: No excessive thirst Gastrointestinal: + abdominal pain (left flank ), + nausea, No vomiting Cardiovascular: No chest pain Respiratory: No shortness of breath Skin: No rash Musculoskeletal: + back pain (left low back ) Female : No painful urination, No blood in urine Physical Exam Vital Signs: Vital Signs Past 12 Hours Date Time Temp Pulse Resp B/P (MAP) Pulse Ox O2 Delivery O2 Flow Rate FiO2 07/31/17 15:17 120 07/31/17 15:15 96 Room Air 07/31/17 15:14 120 26 117/65 96 Room Air 07/31/17 14:33 38.7 142 32 146/81 97 Physical Exam: General Appearance: no apparent distress Eyes: bilateral eyes normal inspection ENT: hearing grossly normal Neck: no JVD Respiratory/Chest: no respiratory distress, no accessory muscle use Cardiovascular: no JVD Extremities: normal inspection Neurologic/Psychiatric: alert, normal mood/affect, oriented x 3 Skin: normal color Assessment & Plan Assessment & Plan Treatment Planned: cystoscopy w/ stent A/P: Fever, left hydronephrosis-? left ureteral stone Will plan for urgent cystoscopy with left ureteral stent placement with Dr. Berg. Risks and benefits of the procedure discussed with the pt. All questions answered. Blood cultures pending. The pt will be admitted by the hospitalist. She will need to remain inpatient until afebrile for 24hrs and culture sensitivities return. Thanks for the consult. Will continue to follow along with primary service.
[2017-07-31 15:40] LABS: INFLUENZA B ANTIGEN Neg for Influ B (NEG)
[2017-07-31 15:44] LABS: INR 1.9 (0.9-1.1); PTT PATIENT 43.7 SECONDS (21.0-31.0)
[2017-07-31 15:49] LABS: ALBUMIN 2.7 gm/dl (3.4-5.0); CALCIUM 8.7 mg/dl (8.5-10.1); CREATININE 1.04 mg/dl (0.60-1.20); POTASSIUM 2.7 mmol/L (3.5-5.1); TOTAL PROTEIN 7.3 gm/dl (6.4-8.2)
--- NOTE | 2017-07-31 15:49 | DIAGNOSTIC IMAGING REPORT ---
CHEST ONE VIEW PORTABLE CLINICAL HISTORY: Sepsis COMPARISON STUDY: No previous studies for comparison. FINDINGS: The heart is normal in size. There is no failure. There is no lobar consolidation. There are linear bibasilar opacities, likely representing subsegmental atelectasis. There are no pleural effusions.[ IMPRESSION: Basilar subsegmental atelectatic changes. Electronically signed by: Arnaldo Main M.D. 07/31/2017 3:47 PM Dictated Date/Time: 07/31/2017 3:46 PM
[2017-07-31 16:03] LABS: BASO % 0.1 %; BASO ABS # 0.01 K/uL (0-0.2); HEMATOCRIT 29.9 % (37-47); HEMOGLOBIN 9.3 g/dL (12.0-16.0); IG# 0.08 K/uL (0.00-0.02); LYMPH % 4.1 %; LYMPH ABS # 0.59 K/uL (1.2-3.4); MEAN CORPUSCULAR HEMOGLOBIN 22.1 pg (25-34); MEAN CORPUSCULAR HGB CONC 31.1 g/dl (32-36); MONO % 2.8 %; NEUT % 92.4 %; NEUT ABS # 13.37 K/uL (1.4-6.5); PLATELET COUNT 166 K/uL (130-400); RED CELL DISTRIBUTION WIDTH CV 17.7 % (11.5-14.5); RED CELL DISTRIBUTION WIDTH SD 45.9 fL (36.4-46.3); WHITE BLOOD COUNT 14.45 K/uL (4.8-10.8)
[2017-07-31] MEDS ORDERED: LIDOCAINE HCL 2% 2 ML VIAL (20MG/ML) ONE (16:14)
[2017-07-31] MEDS ORDERED: ONDANSETRON INJ 2 MG/ML 2 ML VIAL ONE (16:14)
--- NOTE | 2017-07-31 16:37 | [facility] Operative Report ---
Operative Report Operative Date Jul 31, 2017. Pre-Operative Diagnosis Sepsis. Obstruction Left Post-Operative Diagnosis Same Procedure(s) Performed Cystoscopy with left stent placement and retrograde pyelogram Surgeon Otis Estimated Blood Loss Minimal Findings Obstruction on CT scan. Stent placed. Specimens Urine left kidney Drains 6Fr Multilength. Anesthesia Type MAC Complication(s) none Disposition Recovery Room / PACU Indications Sepsis with fever and tachycardia and obstruction on left. Risks and benefits of urgent procedure discussed. Description of Procedure Patient was consented and brought back to the operating room. Patient was placed under anesthesia in the supine position and moved to the dorsal lithotomy position. Patient was prepped and draped in the regular sterile fashion. A time out was completed. A 30degree Cystoscope was placed into the bladder and the entire bladder was examined. The UO's were identified. The left side was cannulized with a catheter and a retrograde pyelogram was completed. A wire was then placed. With the wire in place, a 6 nepali multilength Double J stent was placed. It was confirmed with fluoroscopy. With the stent in place, the bladder was emptied. The scope was removed. The patient was cleaned, aroused from anesthesia, and transferred to the pacu in stable condition having tolerated the procedure well with no complications. I was present and participated in all aspects of the procedure. The patient will be monitored in the PACU until transferred. I attest to the content of the Intraoperative Record and any orders documented therein. Any exceptions are noted below.
--- NOTE | 2017-07-31 17:16 | DIAGNOSTIC IMAGING REPORT ---
RETROGRADE INCLUDES KUB CLINICAL HISTORY: Left-sided hydroureteronephrosis. COMPARISON STUDY: CT scan dated 07/29/2017 FINDINGS: 23 seconds of fluoroscopic time was utilized. 3 intraoperative procedural fluoroscopic spot images are provided for interpretation. Image #1 demonstrates a guidewire coiled within upper pole calyx. Contrast opacifies the left renal collecting system. No filling defects are identified Image #2 demonstrates the proximal pigtail of a left-sided nephroureteral stent Image #3 demonstrates the distal pigtail of a nephroureteral stent. IMPRESSION: Intraoperative radiographs demonstrating placement of a double-pigtail left-sided nephroureteral stent. Electronically signed by: Arnaldo Main M.D. 07/31/2017 5:14 PM Dictated Date/Time: 07/31/2017 5:13 PM
[2017-07-31] MEDS ORDERED: POTASSIUM CHLORIDE 10 MEQ TABCR PO ONE (17:45)
[2017-07-31] MEDS ORDERED: ROCEPHIN CONSULT PHARMACY SCH (17:49)
[2017-07-31] MEDS ORDERED: SODIUM CHLOR 0.45% + 20MEQ KCL 1,000 ML IV SCH (18:00)
[2017-07-31] MEDS: NSS + 20MEQ KCL 1000ML 1,000 ML IV SCH (18:37)
[2017-07-31 18:39] LABS: CALCIUM 8.2 mg/dl (8.5-10.1); CREATININE 0.9 mg/dl (0.60-1.20); POTASSIUM 2.9 mmol/L (3.5-5.1)
[2017-07-31] MEDS: POTASSIUM CHLR 10 MEQ / WTR 10 MEQ in PREMIXED WATER 100 ML IV SCH ×4 (18:39→22:13)
[2017-07-31] MEDS: ACETAMINOPHEN 325 MG TAB PO PRN (20:24)
--- NOTE | 2017-07-31 20:48 | History and Physical ---
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 Patient was seen in ER on 07/29 for left flank pain and CT abdomen/pelvis revealed left hydronephrosis without stone visualization. Pain was adequately controlled in ED and patient was sent home on IR oxycodone. Pain persisted over the next few days and patient also endorses persistent fever of 102-104 degrees F. Flank pain significantly worsened around 11am and patient came to ED for further evaluation. Denies personal history of kidney stones. Has been on warfarin since May S/P left femoral endarterectomy. Endorses fever, chills and nausea. Is able to urinate. Denies lightheadedness , headache, visual changes, chest pain, shortness of breath, abdominal pain, vomiting, diarrhea or LE swelling. Was found to be febrile at 38.7C and tachycardic on admission. Was taken by urology for emergent cystoscopy and stent placement by Dr. Berg for presumed septic obstruction. Patient was evaluated post-operatively. Past Medical/Surgical History Medical Problems: (1) Iron deficiency anemia Status: Chronic (2) Sciatica Status: Chronic (3) Tobacco use disorder Status: Chronic Surgical Problems: (1) Hx of endarterectomy Permanent Comment: May 2017 : Occluded Left Superficial Femoral Artery And Common Femoral Artery s/p Left Common Femoral Endarterectomy with Graft Status: Chronic Family History FH: cancer FH: diabetes mellitus Social History Smoking Status: Current Every Day Smoker Alcohol Use: none Marital Status: in relationship Housing status: lives with family Occupational Status: employed Immunizations History of Influenza Vaccine: No History of Tetanus Vaccine?: No Allergies Coded Allergies: Aspirin (Verified Allergy, Unknown, SWELLING, CAN TAKE IBU PER PATIENT, ) Naproxen (Verified Allergy, Unknown, CAN TAKE IBU PER PATIENT, 05/26/17) Home Medications Scheduled Warfarin Sod (Jantoven), 5 MG PO DAILY Review of Systems Ten systems reviewed and negative except as noted in the HPI. Physical Exam Vital Signs Date Time Temp Pulse Resp B/P (MAP) Pulse Ox O2 Delivery O2 Flow Rate FiO2 07/31/17 20:24 37.9 150 07/31/17 20:15 37.2 130 07/31/17 19:50 37.0 88 17 104/62 Room Air 07/31/17 19:00 37.0 88 17 104/62 (76) 98 Room Air 07/31/17 18:00 101 17 108/68 (81) 94 Room Air 07/31/17 17:30 37.0 97 18 107/62 (77) 95 Room Air 07/31/17 17:10 37.0 94 22 103/56 95 Room Air 07/31/17 17:00 95 20 106/60 98 Oxymask 10 07/31/17 16:50 91 21 115/54 98 Oxymask 10 07/31/17 16:43 36.9 98 22 112/55 98 Oxymask 10 07/31/17 15:50 37.7 115 24 123/68 (86) 96 Room Air 07/31/17 15:46 38.7 117 24 129/68 99 07/31/17 15:27 117 24 129/68 99 Room Air 07/31/17 15:17 120 07/31/17 15:15 96 Room Air 07/31/17 15:14 120 26 117/65 96 Room Air 07/31/17 14:33 38.7 142 32 146/81 97 General Appearance: WD/WN, no apparent distress Head: normocephalic, atraumatic Eyes: normal inspection, PERRL, sclerae normal ENT: normal ENT inspection, hearing grossly normal, pharynx normal Neck: supple, thyroid normal, trachea midline Respiratory/Chest: chest non-tender, lungs clear, normal breath sounds, no respiratory distress, no accessory muscle use Cardiovascular: regular rate, rhythm, no murmur, normal peripheral pulses Abdomen/GI: non tender, soft, no organomegaly Back: no CVA tenderness Extremities/Musculoskelatal: normal inspection, no calf tenderness, no pedal edema Neurologic/Psych: no motor/sensory deficits, alert, normal mood/affect, oriented x 3 Skin: normal color, warm/dry, no rash Diagnostics Laboratory Results Results Past 24 Hours Test 3/27/18 14:55 07/31/17 14:58 07/31/17 18:04 07/31/17 18:45 Range/Units White Blood Count 14.45 4.8-10.8 K/uL Red Blood Count 4.21 4.2-5.4 M/uL Hemoglobin 9.3 12.0-16.0 g/dL Hematocrit 29.9 37-47 % Mean Corpuscular Volume 71.0 80-100 fL Mean Corpuscular Hemoglobin 22.1 25-34 pg Mean Corpuscular Hemoglobin Concent 31.1 32-36 g/dl Platelet Count 166 130-400 K/uL Mean Platelet Volume 9.0 7.4-10.4 fL Neutrophils (%) (Auto) 92.4 % Lymphocytes (%) (Auto) 4.1 % Monocytes (%) (Auto) 2.8 % Eosinophils (%) (Auto) 0.0 % Basophils (%) (Auto) 0.1 % Neutrophils # (Auto) 13.37 1.4-6.5 K/uL Lymphocytes # (Auto) 0.59 1.2-3.4 K/uL Monocytes # (Auto) 0.40 0.11-0.59 K/uL Eosinophils # (Auto) 0.00 0-0.5 K/uL Basophils # (Auto) 0.01 0-0.2 K/uL RDW Standard Deviation 45.9 36.4-46.3 fL RDW Coefficient of Variation 17.7 11.5-14.5 % Immature Granulocyte % (Auto) 0.6 % Immature Granulocyte # (Auto) 0.08 0.00-0.02 K/uL Platelet Estimate NORMAL Hypochromasia PRESENT Prothrombin Time 19.8 9.0-12.0 SECONDS Prothromb Time International Ratio 1.9 0.9-1.1 Activated Partial Thromboplast Time 43.7 21.0-31.0 SECONDS Partial Thromboplastin Ratio 1.7 Sodium Level 131 137 136-145 mmol/L Potassium Level 2.7 2.9 3.5-5.1 mmol/L Chloride Level 100 107 98-107 mmol/L Carbon Dioxide Level 20 22 21-32 mmol/L Anion Gap 11.0 8.0 3-11 mmol/L Blood Urea Nitrogen 11 9 7-18 mg/dl Creatinine 1.04 0.90 0.60-1.20 mg/dl Est Creatinine Clear Calc Drug Dose 81.3 94.0 ml/min Estimated GFR () 76.7 91.4 Estimated GFR (Non- 66.2 78.9 BUN/Creatinine Ratio 10.4 10.3 10-20 Random Glucose 123 98 70-99 mg/dl Calcium Level 8.7 8.2 8.5-10.1 mg/dl Total Bilirubin 0.9 0.2-1 mg/dl Aspartate Amino Transf (AST/SGOT) 10 15-37 U/L Alanine Aminotransferase (ALT/SGPT) 15 12-78 U/L Alkaline Phosphatase 98 45-117 U/L Total Protein 7.3 6.4-8.2 gm/dl Albumin 2.7 3.4-5.0 gm/dl Globulin 4.6 2.5-4.0 gm/dl Albumin/Globulin Ratio 0.6 0.9-2 Human Chorionic Gonadotropin, Qual NEG NEG Influenza Type A Antigen Neg for Influ A NEG Influenza Type B Antigen Neg for Influ B NEG Urine Color YELLOW Urine Appearance CLEAR CLEAR Urine pH 6.5 4.5-7.5 Urine Specific [place] 1.003 1.000-1.030 Urine Protein NEG NEG Urine Glucose (UA) NEG NEG Urine Ketones NEG NEG Urine Occult Blood 2+ NEG Urine Nitrite NEG NEG Urine Bilirubin NEG NEG Urine Urobilinogen NEG NEG Urine Leukocyte Esterase TRACE NEG Urine WBC (Auto) 1-5 0-5 /hpf Urine RBC (Auto) 0-4 0-4 /hpf Urine Hyaline Casts (Auto) 0 0-5 /lpf Urine Epithelial Cells (Auto) 5-10 0-5 /lpf Urine Bacteria (Auto) NEG NEG Microbiology Results 07/31/17 Blood Culture, Received Pending 07/31/17 Blood Culture, Received Pending 07/31/17 Urine Culture, Received Pending 07/31/17 Gram Stain, Received Pending 07/31/17 Bacterial Culture, Received Pending EKG Sinus tachycardia at [address] and T wave abnormality Impression Assessment and Plan Patient is a 42-year-old female with 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 Sepsis 2/2 left hydronephrosis, ? L ureteral stone: -Presented with fever, tachycardia, leukocytosis, flank pain -S/p emergent cystoscopy and stent placement 2/ presumed septic obstruction -No pain post-operatively. Able to eat dinner, rest comfortably -Blood cultures pending -IVF resuscitation -Ceftriaxone -Lactate is pending -Urology consulted -Remain inpatient until afebrile for 24hrs and culture sensitivities return H/o femoral artery thrombosis: -S/p left common femoral endarterectomy with graft in May 2017 -Coumadin held post-operatively -Plan to restart Coumadin tomorrow Iron deficiency anemia: -Hgb at baseline ~9 -Type and screened -Plan to transfuse for hgb <8 -Repeat CBC in AM DVT Ppx: SCDs Code status: FULL PCP: Angelita Dispo: Plan to return home once medically stable.. Patient seen in collaboration with Dr. Laughlin. Please see addendum. Attending Note: Patient is a 42 yr female with with PMH of femoral artery thrombosis on chronic anticoagulation presents with history of worsening left flank pain, fever, chills since [address] abd done on 07/29 showed Left hydroureteronephrosis. Questionable punctate calcification in the region of the left ureter, which is equivocal for a ureteral calculus. Patient underwent L ureteral stent placement and currently pain has resolved. Physical Exam: Vitals signs as noted above General Appearance:Moderately built and nourished, no apparent distress Head: normocephalic, Atraumatic Eyes: normal inspection, EOMI, PERRL Neck: supple, Trachea midline Respiratory/Chest: Normal breath sounds, CTA, No accessory muscle use Cardiovascular: S1, S2, +Tachycardia, No murmur Abdomen/GI:Soft, L flank tender, Bowel sounds present Extremities/Musculoskelatal:normal inspection, no edema Neurologic/Psych:AAOX3, grossly no focal neurological deficits Skin:normal color,warm Assessment and Plan: Sepsis: Left Hydronephrosis, ? Left Ureteral Stone S/O Cystoscopy, retrograde Pyelogram, L ureteral stent placement IV fluids, IV Abx Appreciate Urology help Follow up cultures Lactate pending Hypokalemia: Replace and monitor check Mag levels I personally reviewed the record. Patient is interviewed and examined at bedside. Patient's care is coordinated with Mary Elmore PA-C. Please refer to the documentation above for details of patient's presentation and for discussion of other issues. Advanced Directives Existing Living Will: No Existing Power of Mechanical Facilities Technician: No Resuscitation Status VTE Prophylaxis Will order VTE Prophylaxis: Yes
[2017-08-01] VITALS (17 sets, daily range): BP systolic 98–144; BP diastolic 60–73; PULSE 82–127; TEMP 36.5–39.4; O2SAT 94–99
[2017-08-01] MEDS: NSS + 20MEQ KCL 1000ML 1,000 ML IV SCH (04:21)
[2017-08-01 07:29] LABS: BASO % 0.1 %; BASO ABS # 0.01 K/uL (0-0.2); EOS % 0.6 %; EOS ABS # 0.06 K/uL (0-0.5); HEMATOCRIT 24.4 % (37-47); HEMOGLOBIN 7.6 g/dL (12.0-16.0); IG# 0.03 K/uL (0.00-0.02); LYMPH % 9.4 %; LYMPH ABS # 1.02 K/uL (1.2-3.4); MEAN CELL VOLUME 71.3 fL (80-100); MEAN CORPUSCULAR HEMOGLOBIN 22.2 pg (25-34); MEAN CORPUSCULAR HGB CONC 31.1 g/dl (32-36); MEAN PLATELET VOLUME 8.8 fL (7.4-10.4); MONO % 5.3 %; MONO ABS # 0.57 K/uL (0.11-0.59); NEUT % 84.3 %; NEUT ABS # 9.14 K/uL (1.4-6.5); PLATELET COUNT 111 K/uL (130-400); RED CELL DISTRIBUTION WIDTH CV 18.2 % (11.5-14.5); RED CELL DISTRIBUTION WIDTH SD 47.7 fL (36.4-46.3); WHITE BLOOD COUNT 10.83 K/uL (4.8-10.8)
[2017-08-01 07:36] LABS: INR 2.2 (0.9-1.1)
[2017-08-01 08:02] LABS: CALCIUM 7.9 mg/dl (8.5-10.1); CREATININE 0.87 mg/dl (0.60-1.20); POTASSIUM 4.1 mmol/L (3.5-5.1)
[2017-08-01] MEDS: CEFTRIAXONE SOD INJ 2,000 MG in DEXTROSE 5% 50ML 50 ML IV SCH (09:47)
[2017-08-01] MEDS: SODIUM CHLORIDE 0.9% 1000ML 1,000 ML IV SCH ×2 (09:48→19:40)
--- NOTE | 2017-08-01 09:58 | Progress Note ---
Subjective Date of Service: Aug 01, 2017. Subjective Pt evaluation today including: conversation w/ patient, chart review, lab review Voiding: no voiding problems 42 yo female s/p left ureteral stent placement yesterday for fever. Pt denies pain today. Reports she is feeling much better. + gross hematuria. Blood cultures preliminarily growing gram negative bacilli. H&H noted to be 7.[address] Angel notified. Was noted to have a fever of 39.3 last evening. She is afebrile this morning. Problem List Medical Problems: (1) Arterial occlusion, lower extremity Status: Acute (2) Back pain with sciatica Status: Acute (3) Hydronephrosis with obstructing calculus Status: Acute (4) Hydronephrosis, left Status: Acute (5) Leg pain Status: Acute (6) Sepsis Status: Acute Review of Systems Constitutional: No fever, No chills Respiratory: No shortness of breath Cardiac: No chest pain Abdomen: No pain, No nausea, No vomiting Female : + urinary frequency, + hematuria, No dysuria Heme: No abnormal bleeding/bruising Objective Vital Signs Date Time Temp Pulse Resp B/P (MAP) Pulse Ox O2 Delivery O2 Flow Rate FiO2 08/01/17 08:00 99 Room Air 08/01/17 07:36 37.0 102 16 101/63 (76) 99 08/01/17 04:23 Room Air 08/01/17 03:40 36.6 90 17 98/60 (73) 96 Room Air 08/01/17 00:28 117 07/31/17 23:15 Room Air 07/31/17 23:12 36.6 134 18 130/70 (90) 94 Room Air 07/31/17 21:41 39.3 137 18 122/64 (83) 07/31/17 20:32 168 205/76 (119) 07/31/17 20:24 37.9 150 07/31/17 20:15 37.2 130 07/31/17 19:50 37.0 88 17 104/62 Room Air 07/31/17 19:35 Room Air 07/31/17 19:00 37.0 88 17 104/62 (76) 98 Room Air 07/31/17 18:00 101 17 108/68 (81) 94 Room Air 07/31/17 17:30 37.0 97 18 107/62 (77) 95 Room Air 07/31/17 17:10 37.0 94 22 103/56 95 Room Air 07/31/17 17:00 95 20 106/60 98 Oxymask 10 07/31/17 16:50 91 21 115/54 98 Oxymask 10 07/31/17 16:43 36.9 98 22 112/55 98 Oxymask 10 07/31/17 15:50 37.7 115 24 123/68 (86) 96 Room Air 07/31/17 15:46 38.7 117 24 129/68 99 07/31/17 15:27 117 24 129/68 99 Room Air 07/31/17 15:17 120 07/31/17 15:15 96 Room Air 07/31/17 15:14 120 26 117/65 96 Room Air 07/31/17 14:33 38.7 142 32 146/81 97 Physical Exam General Appearance: no apparent distress Eyes: normal inspection ENT: hearing grossly normal Neck: no JVD Respiratory/Chest: no respiratory distress, no accessory muscle use Cardiovascular: no JVD Extremities: normal inspection Neurologic/Psychiatric: alert, normal mood/affect, oriented x 3 Skin: normal color Laboratory Results Last 24 Hours Test 07/31/17 14:55 07/31/17 14:58 07/31/17 15:12 07/31/17 18:04 White Blood Count 14.45 K/uL Red Blood Count 4.21 M/uL Hemoglobin 9.3 g/dL Hematocrit 29.9 % Mean Corpuscular Volume 71.0 fL Mean Corpuscular Hemoglobin 22.1 pg Mean Corpuscular Hemoglobin Concent 31.1 g/dl Platelet Count 166 K/uL Mean Platelet Volume 9.0 fL Neutrophils (%) (Auto) 92.4 % Lymphocytes (%) (Auto) 4.1 % Monocytes (%) (Auto) 2.8 % Eosinophils (%) (Auto) 0.0 % Basophils (%) (Auto) 0.1 % Neutrophils # (Auto) 13.37 K/uL Lymphocytes # (Auto) 0.59 K/uL Monocytes # (Auto) 0.40 K/uL Eosinophils # (Auto) 0.00 K/uL Basophils # (Auto) 0.01 K/uL RDW Standard Deviation 45.9 fL RDW Coefficient of Variation 17.7 % Immature Granulocyte % (Auto) 0.6 % Immature Granulocyte # (Auto) 0.08 K/uL Platelet Estimate NORMAL Hypochromasia PRESENT Prothrombin Time 19.8 SECONDS Prothromb Time International Ratio 1.9 Activated Partial Thromboplast Time 43.7 SECONDS Partial Thromboplastin Ratio 1.7 Sodium Level 131 mmol/L 137 mmol/L Potassium Level 2.7 mmol/L 2.9 mmol/L Chloride Level 100 mmol/L 107 mmol/L Carbon Dioxide Level 20 mmol/L 22 mmol/L Anion Gap 11.0 mmol/L 8.0 mmol/L Blood Urea Nitrogen 11 mg/dl 9 mg/dl Creatinine 1.04 mg/dl 0.90 mg/dl Est Creatinine Clear Calc Drug Dose 81.3 ml/min 94.0 ml/min Estimated GFR () 76.7 91.4 Estimated GFR (Non- 66.2 78.9 BUN/Creatinine Ratio 10.4 10.3 Random Glucose 123 mg/dl 98 mg/dl Calcium Level 8.7 mg/dl 8.2 mg/dl Total Bilirubin 0.9 mg/dl Aspartate Amino Transf (AST/SGOT) 10 U/L Alanine Aminotransferase (ALT/SGPT) 15 U/L Alkaline Phosphatase 98 U/L Total Protein 7.3 gm/dl Albumin 2.7 gm/dl Globulin 4.6 gm/dl Albumin/Globulin Ratio 0.6 Human Chorionic Gonadotropin, Qual NEG Influenza Type A Antigen Neg for Influ A Influenza Type B Antigen Neg for Influ B Bedside Lactic Acid Venous 1.30 mmol/L Test 07/31/17 18:45 07/31/17 21:59 08/01/17 06:42 Urine Color YELLOW Urine Appearance CLEAR Urine pH 6.5 Urine Specific [place] 1.003 Urine Protein NEG Urine Glucose (UA) NEG Urine Ketones NEG Urine Occult Blood 2+ Urine Nitrite NEG Urine Bilirubin NEG Urine Urobilinogen NEG Urine Leukocyte Esterase TRACE Urine WBC (Auto) 1-5 /hpf Urine RBC (Auto) 0-4 /hpf Urine Hyaline Casts (Auto) 0 /lpf Urine Epithelial Cells (Auto) 5-10 /lpf Urine Bacteria (Auto) NEG Lactic Acid Level 1.5 mmol/L White Blood Count 10.83 K/uL Red Blood Count 3.42 M/uL Hemoglobin 7.6 g/dL Hematocrit 24.4 % Mean Corpuscular Volume 71.3 fL Mean Corpuscular Hemoglobin 22.2 pg Mean Corpuscular Hemoglobin Concent 31.1 g/dl Platelet Count 111 K/uL Mean Platelet Volume 8.8 fL Neutrophils (%) (Auto) 84.3 % Lymphocytes (%) (Auto) 9.4 % Monocytes (%) (Auto) 5.3 % Eosinophils (%) (Auto) 0.6 % Basophils (%) (Auto) 0.1 % Neutrophils # (Auto) 9.14 K/uL Lymphocytes # (Auto) 1.02 K/uL Monocytes # (Auto) 0.57 K/uL Eosinophils # (Auto) 0.06 K/uL Basophils # (Auto) 0.01 K/uL RDW Standard Deviation 47.7 fL RDW Coefficient of Variation 18.2 % Immature Granulocyte % (Auto) 0.3 % Immature Granulocyte # (Auto) 0.03 K/uL Anisocytosis PRESENT Microcytosis PRESENT Prothrombin Time 22.9 SECONDS Prothromb Time International Ratio 2.2 Sodium Level 141 mmol/L Potassium Level 4.1 mmol/L Chloride Level 112 mmol/L Carbon Dioxide Level 22 mmol/L Anion Gap 7.0 mmol/L Blood Urea Nitrogen 11 mg/dl Creatinine 0.87 mg/dl Est Creatinine Clear Calc Drug Dose 97.2 ml/min Estimated GFR () 95.2 Estimated GFR (Non- 82.2 BUN/Creatinine Ratio 12.1 Random Glucose 88 mg/dl Calcium Level 7.9 mg/dl Magnesium Level 2.2 mg/dl Assessment and Plan POD #1 s/p left ureteral stent placement Management of anemia per primary service. Continue IV abx pending culture sensitivities. Would then transition to 10-14 days of oral abx prior to d/c home. Uncertain if a stone is the source of pt's hydro and sepsis. Will eventually need outpatient ureteroscopy for further evaluation once her infection has been adequately treated. Will arrange for outpatient f/u with Dr. Berg. Will continue to follow along with primary service.
[2017-08-01] MEDS ORDERED: FUROSEMIDE INJ 20 MG in SYRINGE 0 ML IV SCH (11:00)
[2017-08-01] MEDS ORDERED: ACETAMINOPHEN 325 MG TAB PO SCH (11:00)
--- NOTE | 2017-08-01 12:20 | DIAGNOSTIC IMAGING REPORT ---
[facility] CLINICAL HISTORY: 42 years-old Female presenting with ? ureteral stone. s/p stent placement . TECHNIQUE: Single supine view of the abdomen was obtained. COMPARISON: CT from 07/29/2017. FINDINGS: Nonobstructive bowel gas pattern. No gross pneumoperitoneum. Interval placement of a left ureteral stent. The previously noted calculus along the course of the distal left ureter is not clearly visualized. Multiple pelvic phleboliths noted. Surgical clip projects over the left hip likely from recent vascular access. Osseous structures normal. IMPRESSION: 1. No radiographic evidence of ureteral calculus status post left ureteral stent placement. Electronically signed by: Fred Gomes M.D. 08/01/2017 12:19 PM Dictated Date/Time: 08/01/2017 12:17 PM
[2017-08-01] MEDS: WARFARIN SOD 5 MG TAB PO SCH (15:19)
[2017-08-01] MEDS ORDERED: CEFTRIAXONE SOD INJ 1000 MG in DEXTROSE 5% 50ML IV SCH (16:00)
[2017-08-01] MEDS: ACETAMINOPHEN 325 MG TAB PO PRN (19:45)
[2017-08-02 01:46] VITALS: TEMP 37.8
[2017-08-02] MEDS: ACETAMINOPHEN 325 MG TAB PO PRN ×3 (01:46→22:42)
[2017-08-02 03:35] VITALS: BP 116/64; PULSE 100; TEMP 37.3; O2SAT 93
[2017-08-02] MEDS: SODIUM CHLORIDE 0.9% 1000ML 1,000 ML IV SCH (04:42)
[2017-08-02 07:21] VITALS: BP 124/66; PULSE 100; TEMP 36.7; O2SAT 95
[2017-08-02 08:01] LABS: BASO % 0.3 %; BASO ABS # 0.02 K/uL (0-0.2); EOS % 1.9 %; EOS ABS # 0.15 K/uL (0-0.5); HEMATOCRIT 29.5 % (37-47); HEMOGLOBIN 9.6 g/dL (12.0-16.0); IG# 0.04 K/uL (0.00-0.02); LYMPH % 14.6 %; LYMPH ABS # 1.16 K/uL (1.2-3.4); MEAN CELL VOLUME 72.1 fL (80-100); MEAN CORPUSCULAR HEMOGLOBIN 23.5 pg (25-34); MEAN CORPUSCULAR HGB CONC 32.5 g/dl (32-36); MONO % 9.1 %; MONO ABS # 0.72 K/uL (0.11-0.59); NEUT % 73.6 %; NEUT ABS # 5.84 K/uL (1.4-6.5); PLATELET COUNT 113 K/uL (130-400); RED CELL DISTRIBUTION WIDTH CV 18.2 % (11.5-14.5); RED CELL DISTRIBUTION WIDTH SD 48.7 fL (36.4-46.3); WHITE BLOOD COUNT 7.93 K/uL (4.8-10.8)
[2017-08-02 08:29] LABS: CALCIUM 7.8 mg/dl (8.5-10.1); CREATININE 0.79 mg/dl (0.60-1.20); POTASSIUM 2.8 mmol/L (3.5-5.1)
[2017-08-02] MEDS ORDERED: POTASSIUM CHLORIDE 20 MEQ TABCR PO STA (08:39)
[2017-08-02] MEDS: CEFTRIAXONE SOD INJ 2,000 MG in DEXTROSE 5% 50ML 50 ML IV SCH (08:53)
[2017-08-02] MEDS ORDERED: PHENAZOPYRIDINE HCL 200 MG TAB PO PRN (09:15)
[2017-08-02] MEDS: POTASSIUM CHLORIDE INJ 20 MEQ in SODIUM CHLORIDE 0.9% 1000ML 1,000 ML IV SCH ×2 (09:21→20:28)
--- NOTE | 2017-08-02 09:26 | Progress Note ---
Internal Med Progress Note Date of Service: Aug 01, 2017. Provider Documentation: SUBJECTIVE: resting comfortably hemodynamically stable having hematuria no nausea or vomiting no abdominal pain afebrile OBJECTIVE: Vital Signs-as noted below Exam: General-alert and oriented. ENT-Normal hearing Neck-no neck masses Lungs-cta b/l no wheezing no crackles present Heart-S1 and S2 heard regular rate and rhythm no murmurs Abdomen-Soft bowel sounds present non tender no distension Extremities-no edema no erythema Neuro-alert and awake moves extremities Lab data as noted below. 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 Sepsis 2/2 left hydronephrosis, ? L ureteral stone: Presented with fever, tachycardia, leukocytosis, flank pain -S/p emergent cystoscopy and stent placement 2/2 presumed septic obstruction Bacteremia with gm negative bacilli increased Rocephin to 2gm daily hemodynamics stable continue to monitor. H/o femoral artery thrombosis: S/p left common femoral endarterectomy with graft in May 2017 Coumadin was held post-operatively restarted Coumadin Acute blood loss anemia on chronic Iron deficiency anemia: Hematuria post procedure Hgb at baseline ~9 hb 7.67v today ton transfuse 2units today f/u labs DVT Ppx: SCDs DISPOSITION monitor in tele Vital Signs: Date Time Temp Pulse Resp B/P (MAP) Pulse Ox O2 Delivery O2 Flow Rate FiO2 08/02/17 07:30 Room Air 08/02/17 07:21 36.7 100 16 124/66 (85) 95 08/02/17 03:45 Room Air 08/02/17 03:35 37.3 100 20 116/64 (81) 93 Room Air 08/02/17 01:46 37.8 08/01/17 23:15 Room Air 08/01/17 22:49 37.9 92 18 118/68 (85) 97 Room Air 08/01/17 19:45 Room Air 08/01/17 19:12 37.7 94 18 126/66 (86) 98 Room Air 08/01/17 17:00 36.8 90 16 115/70 99 08/01/17 16:00 99 Room Air 08/01/17 16:00 37.2 82 16 111/68 95 08/01/17 15:45 37.2 100 16 123/69 96 08/01/17 15:30 37.2 93 16 109/62 97 08/01/17 13:45 38.1 102 16 124/67 96 08/01/17 13:15 38.7 108 16 123/67 94 08/01/17 13:15 39.1 08/01/17 13:00 39.3 125 16 129/68 94 08/01/17 13:00 39.3 125 16 129/68 94 08/01/17 12:50 39.4 127 16 134/71 96 08/01/17 12:50 39.4 127 16 134/71 96 08/01/17 12:45 39.4 125 16 144/73 96 08/01/17 12:45 39.4 125 16 144/73 96 08/01/17 12:00 99 Room Air 08/01/17 11:56 36.5 112 18 98/61 (73) 99 Lab Results: Results Past 24 Hours Test 08/01/17 11:40 08/02/17 07:42 Range/Units Stool Occult Blood NEGATIVE NEGATIVE White Blood Count 7.93 4.8-10.8 K/uL Red Blood Count 4.09 4.2-5.4 M/uL Hemoglobin 9.6 12.0-16.0 g/dL Hematocrit 29.5 37-47 % Mean Corpuscular Volume 72.1 80-100 fL Mean Corpuscular Hemoglobin 23.5 25-34 pg Mean Corpuscular Hemoglobin Concent 32.5 32-36 g/dl Platelet Count 113 130-400 K/uL Mean Platelet Volume 9.0 7.4-10.4 fL Neutrophils (%) (Auto) 73.6 % Lymphocytes (%) (Auto) 14.6 % Monocytes (%) (Auto) 9.1 % Eosinophils (%) (Auto) 1.9 % Basophils (%) (Auto) 0.3 % Neutrophils # (Auto) 5.84 1.4-6.5 K/uL Lymphocytes # (Auto) 1.16 1.2-3.4 K/uL Monocytes # (Auto) 0.72 0.11-0.59 K/uL Eosinophils # (Auto) 0.15 0-0.5 K/uL Basophils # (Auto) 0.02 0-0.2 K/uL RDW Standard Deviation 48.7 36.4-46.3 fL RDW Coefficient of Variation 18.2 11.5-14.5 % Immature Granulocyte % (Auto) 0.5 % Immature Granulocyte # (Auto) 0.04 0.00-0.02 K/uL Sodium Level 139 136-145 mmol/L Potassium Level 2.8 3.5-5.1 mmol/L Chloride Level 110 98-107 mmol/L Carbon Dioxide Level 23 21-32 mmol/L Anion Gap 6.0 3-11 mmol/L Blood Urea Nitrogen 8 7-18 mg/dl Creatinine 0.79 0.60-1.20 mg/dl Est Creatinine Clear Calc Drug Dose 107.1 ml/min Estimated GFR () 107.0 Estimated GFR (Non- 92.3 BUN/Creatinine Ratio 10.4 10-20 Random Glucose 86 70-99 mg/dl Calcium Level 7.8 8.5-10.1 mg/dl Magnesium Level 2.1 1.8-2.4 mg/dl
--- NOTE | 2017-08-02 09:29 | Progress Note ---
Subjective Date of Service: Aug 02, 2017. Subjective Pt evaluation today including: conversation w/ patient, chart review, lab review Voiding: no voiding problems 42 yo female s/p left ureteral stent placement for sepsis. Pt reports she is feeling tired, but better this morning. + intermittent gross hematuria and dysuria. Blood cultures pending. UC&S preliminarily negative. Fevers have improved. Received 2 units of PRBCs yesterday. H&H improved to 9.6 and 29.5. Problem List Medical Problems: (1) Arterial occlusion, lower extremity Status: Acute (2) Back pain with sciatica Status: Acute (3) Hydronephrosis with obstructing calculus Status: Acute (4) Hydronephrosis, left Status: Acute (5) Leg pain Status: Acute (6) Sepsis Status: Acute Review of Systems Constitutional: No fever, No chills Respiratory: No shortness of breath Cardiac: No chest pain Abdomen: No pain, No nausea, No vomiting Female : No dysuria, No hematuria Heme: No abnormal bleeding/bruising Objective Vital Signs Date Time Temp Pulse Resp B/P (MAP) Pulse Ox O2 Delivery O2 Flow Rate FiO2 08/02/17 07:30 Room Air 08/02/17 07:21 36.7 100 16 124/66 (85) 95 08/02/17 03:45 Room Air 08/02/17 03:35 37.3 100 20 116/64 (81) 93 Room Air 08/02/17 01:46 37.8 08/01/17 23:15 Room Air 08/01/17 22:49 37.9 92 18 118/68 (85) 97 Room Air 08/01/17 19:45 Room Air 08/01/17 19:12 37.7 94 18 126/66 (86) 98 Room Air 08/01/17 17:00 36.8 90 16 115/70 99 08/01/17 16:00 99 Room Air 08/01/17 16:00 37.2 82 16 111/68 95 08/01/17 15:45 37.2 100 16 123/69 96 08/01/17 15:30 37.2 93 16 109/62 97 08/01/17 13:45 38.1 102 16 124/67 96 08/01/17 13:15 38.7 108 16 123/67 94 08/01/17 13:15 39.1 08/01/17 13:00 39.3 125 16 129/68 94 08/01/17 13:00 39.3 125 16 129/68 94 08/01/17 12:50 39.4 127 16 134/71 96 08/01/17 12:50 39.4 127 16 134/71 96 08/01/17 12:45 39.4 125 16 144/73 96 08/01/17 12:45 39.4 125 16 144/73 96 08/01/17 12:00 99 Room Air 08/01/17 11:56 36.5 112 18 98/61 (73) 99 Physical Exam General Appearance: no apparent distress Eyes: normal inspection ENT: hearing grossly normal Neck: no JVD Respiratory/Chest: no respiratory distress, no accessory muscle use Cardiovascular: no JVD Extremities: normal inspection Neurologic/Psychiatric: alert, normal mood/affect, oriented x 3 Skin: normal color Laboratory Results Last 24 Hours Test 08/01/17 11:40 08/02/17 07:42 Stool Occult Blood NEGATIVE White Blood Count 7.93 K/uL Red Blood Count 4.09 M/uL Hemoglobin 9.6 g/dL Hematocrit 29.5 % Mean Corpuscular Volume 72.1 fL Mean Corpuscular Hemoglobin 23.5 pg Mean Corpuscular Hemoglobin Concent 32.5 g/dl Platelet Count 113 K/uL Mean Platelet Volume 9.0 fL Neutrophils (%) (Auto) 73.6 % Lymphocytes (%) (Auto) 14.6 % Monocytes (%) (Auto) 9.1 % Eosinophils (%) (Auto) 1.9 % Basophils (%) (Auto) 0.3 % Neutrophils # (Auto) 5.84 K/uL Lymphocytes # (Auto) 1.16 K/uL Monocytes # (Auto) 0.72 K/uL Eosinophils # (Auto) 0.15 K/uL Basophils # (Auto) 0.02 K/uL RDW Standard Deviation 48.7 fL RDW Coefficient of Variation 18.2 % Immature Granulocyte % (Auto) 0.5 % Immature Granulocyte # (Auto) 0.04 K/uL Sodium Level 139 mmol/L Potassium Level 2.8 mmol/L Chloride Level 110 mmol/L Carbon Dioxide Level 23 mmol/L Anion Gap 6.0 mmol/L Blood Urea Nitrogen 8 mg/dl Creatinine 0.79 mg/dl Est Creatinine Clear Calc Drug Dose 107.1 ml/min Estimated GFR () 107.0 Estimated GFR (Non- 92.3 BUN/Creatinine Ratio 10.4 Random Glucose 86 mg/dl Calcium Level 7.8 mg/dl Magnesium Level 2.1 mg/dl Assessment and Plan POD #2 s/p left ureteral stent placement AFVSS. Continue IV abx pending culture sensitivities. Would then transition to 10-14 days of oral abx prior to d/c home. Uncertain if a stone is the source of pt's hydro and sepsis. Will eventually need outpatient ureteroscopy for further evaluation once her infection has been adequately treated. Will arrange for outpatient f/u with Dr. Berg. Will continue to follow along with primary service.
[2017-08-02 11:41] VITALS: BP 124/77; PULSE 99; TEMP 36.8
--- NOTE | 2017-08-02 13:16 | Progress Note ---
Internal Med Progress Note Date of Service: Aug 02, 2017. Provider Documentation: SUBJECTIVE: resting comfortably on and off hematuria no pain had mild temp spike and wqas sweaty no nausea no chest pain or sob OBJECTIVE: Vital Signs-as noted below Exam: General-alert and oriented. ENT-Normal hearing Neck-no neck masses Lungs-cta b/l no wheezing no crackles present Heart-S1 and S2 heard regular rate and rhythm no murmurs Abdomen-Soft bowel sounds present non tender no distension Extremities-no edema no erythema Neuro-alert and awake moves extremities Lab data as noted below. 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 Sepsis 2/2 left hydronephrosis, ? L ureteral stone: Presented with fever, tachycardia, leukocytosis, flank pain -S/p emergent cystoscopy and stent placement 2/2 presumed septic obstruction Bacteremia with gm negative bacilli increased Rocephin to 2gm daily still spiking temp BP stable await final cx continue to monitor. H/o femoral artery thrombosis: S/p left common femoral endarterectomy with graft in May 2017 Coumadin was held post-operatively restarted Coumadin inr 2.2 Acute blood loss anemia on chronic Iron deficiency anemia: Hematuria post procedure Hgb at baseline ~9 hb 7.6 08/01/17 s/p transfused 2units hb 9.6 today Hypokalemia 'k 2.8 today will replace seems chronic may need kcl supplement on discharge DVT Ppx: SCDs DISPOSITION monitor in tele pt/ot to be determined Vital Signs: Date Time Temp Pulse Resp B/P (MAP) Pulse Ox O2 Delivery O2 Flow Rate FiO2 08/02/17 11:41 36.8 99 16 124/77 (93) 08/02/17 11:30 Room Air 08/02/17 07:30 Room Air 08/02/17 07:21 36.7 100 16 124/66 (85) 95 08/02/17 03:45 Room Air 08/02/17 03:35 37.3 100 20 116/64 (81) 93 Room Air 08/02/17 01:46 37.8 08/01/17 23:15 Room Air 08/01/17 22:49 37.9 92 18 118/68 (85) 97 Room Air 08/01/17 19:45 Room Air 08/01/17 19:12 37.7 94 18 126/66 (86) 98 Room Air 08/01/17 17:00 36.8 90 16 115/70 99 08/01/17 16:00 99 Room Air 08/01/17 16:00 37.2 82 16 111/68 95 08/01/17 15:45 37.2 100 16 123/69 96 08/01/17 15:30 37.2 93 16 109/62 97 08/01/17 13:45 38.1 102 16 124/67 96 Lab Results: Results Past 24 Hours Test 08/02/17 07:42 Range/Units White Blood Count 7.93 4.8-10.8 K/uL Red Blood Count 4.09 4.2-5.4 M/uL Hemoglobin 9.6 12.0-16.0 g/dL Hematocrit 29.5 37-47 % Mean Corpuscular Volume 72.1 80-100 fL Mean Corpuscular Hemoglobin 23.5 25-34 pg Mean Corpuscular Hemoglobin Concent 32.5 32-36 g/dl Platelet Count 113 130-400 K/uL Mean Platelet Volume 9.0 7.4-10.4 fL Neutrophils (%) (Auto) 73.6 % Lymphocytes (%) (Auto) 14.6 % Monocytes (%) (Auto) 9.1 % Eosinophils (%) (Auto) 1.9 % Basophils (%) (Auto) 0.3 % Neutrophils # (Auto) 5.84 1.4-6.5 K/uL Lymphocytes # (Auto) 1.16 1.2-3.4 K/uL Monocytes # (Auto) 0.72 0.11-0.59 K/uL Eosinophils # (Auto) 0.15 0-0.5 K/uL Basophils # (Auto) 0.02 0-0.2 K/uL RDW Standard Deviation 48.7 36.4-46.3 fL RDW Coefficient of Variation 18.2 11.5-14.5 % Immature Granulocyte % (Auto) 0.5 % Immature Granulocyte # (Auto) 0.04 0.00-0.02 K/uL Sodium Level 139 136-145 mmol/L Potassium Level 2.8 3.5-5.1 mmol/L Chloride Level 110 98-107 mmol/L Carbon Dioxide Level 23 21-32 mmol/L Anion Gap 6.0 3-11 mmol/L Blood Urea Nitrogen 8 7-18 mg/dl Creatinine 0.79 0.60-1.20 mg/dl Est Creatinine Clear Calc Drug Dose 107.1 ml/min Estimated GFR () 107.0 Estimated GFR (Non- 92.3 BUN/Creatinine Ratio 10.4 10-20 Random Glucose 86 70-99 mg/dl Calcium Level 7.8 8.5-10.1 mg/dl Magnesium Level 2.1 1.8-2.4 mg/dl
--- NOTE | 2017-08-02 15:34 | Anesthesiology Progress Note ---
Anesthesia Post Op Note Date & Time Aug 02, 2017 at 15:33 Vital Signs Pain Intensity: 0.0 Vital Signs Past 12 Hours Date Time Temp Pulse Resp B/P (MAP) Pulse Ox O2 Delivery O2 Flow Rate FiO2 08/02/17 11:41 36.8 99 16 124/77 (93) 08/02/17 11:30 Room Air 08/02/17 07:30 Room Air 08/02/17 07:21 36.7 100 16 124/66 (85) 95 08/02/17 03:45 Room Air 08/02/17 03:35 37.3 100 20 116/64 (81) 93 Room Air Notes Mental Status: alert / awake / arousable, participated in evaluation Pt Amnestic to Procedure: Yes Nausea / Vomiting: adequately controlled Pain: adequately controlled Airway Patency, RR, SpO2: stable & adequate BP & HR: stable & adequate Hydration State: stable & adequate Anesthetic Complications: no major complications apparent This post-op visit was made on August 01, 2017 @ 07:30 AM
[2017-08-02] MEDS: WARFARIN SOD 5 MG TAB PO SCH (15:46)
[2017-08-02 15:48] VITALS: BP 123/69; PULSE 103; TEMP 37.7; O2SAT 97
[2017-08-02] MEDS ORDERED: CEFEPIME CONSULT ACTIVE PRN (16:00)
[2017-08-02] MEDS: CEFEPIME IV 2,000 MG in SYRINGE 7.5 ML IV SCH (16:25)
[2017-08-02 19:26] VITALS: BP 134/73; PULSE 89; TEMP 37.3; O2SAT 97
[2017-08-03 00:29] VITALS: BP 126/76; PULSE 96; TEMP 38; O2SAT 95
[2017-08-03] MEDS: CEFEPIME IV 2,000 MG in SYRINGE 7.5 ML IV SCH (03:52)
[2017-08-03 03:58] VITALS: BP 137/78; PULSE 97; TEMP 37.5; O2SAT 94
[2017-08-03] MEDS: ACETAMINOPHEN 325 MG TAB PO PRN (04:46)
[2017-08-03 07:01] LABS: HEMATOCRIT 28.4 % (37-47); HEMOGLOBIN 9.1 g/dL (12.0-16.0); MEAN CELL VOLUME 72.4 fL (80-100); MEAN CORPUSCULAR HEMOGLOBIN 23.2 pg (25-34); MEAN PLATELET VOLUME 9.3 fL (7.4-10.4); PLATELET COUNT 156 K/uL (130-400); RED CELL DISTRIBUTION WIDTH CV 18.4 % (11.5-14.5); RED CELL DISTRIBUTION WIDTH SD 49.4 fL (36.4-46.3)
[2017-08-03 07:07] LABS: INR 1.8 (0.9-1.1)
[2017-08-03 07:22] LABS: BASO % 0.5 %; BASO ABS # 0.04 K/uL (0-0.2); EOS % 1.5 %; EOS ABS # 0.12 K/uL (0-0.5); IG# 0.07 K/uL (0.00-0.02); LYMPH % 6.8 %; LYMPH ABS # 0.56 K/uL (1.2-3.4); MONO % 4.9 %; NEUT % 85.4 %; NEUT ABS # 7.01 K/uL (1.4-6.5)
[2017-08-03 07:37] LABS: CREATININE 0.91 mg/dl (0.60-1.20); POTASSIUM 3.3 mmol/L (3.5-5.1)
[2017-08-03] MEDS: POTASSIUM CHLORIDE INJ 20 MEQ in SODIUM CHLORIDE 0.9% 1000ML 1,000 ML IV SCH (07:44)
[2017-08-03 08:04] VITALS: BP 124/66; PULSE 94; TEMP 36.8; O2SAT 97
[2017-08-03] MEDS ORDERED: POTASSIUM CHLORIDE 10 MEQ TABCR PO ONE (09:15)
--- NOTE | 2017-08-03 10:22 | Progress Note ---
Subjective Date of Service: Aug 03, 2017. Subjective Pt evaluation today including: conversation w/ patient, chart review, lab review Voiding: no voiding problems 42 yo female s/p left ureteral stent placement for sepsis. Stating she is feeling much better, and wants to get home to her 4 yo son for Tamara. Noted to have a fever of 38F last evening. Afebrile this morning. White count has normalized since admission. Cultures pending. Problem List Medical Problems: (1) Arterial occlusion, lower extremity Status: Acute (2) Back pain with sciatica Status: Acute (3) Hydronephrosis with obstructing calculus Status: Acute (4) Hydronephrosis, left Status: Acute (5) Leg pain Status: Acute (6) Sepsis Status: Acute Review of Systems Constitutional: No fever, No chills Respiratory: No shortness of breath Cardiac: No chest pain Abdomen: No pain, No nausea, No vomiting Female : + urinary frequency, No dysuria, No hematuria Heme: No abnormal bleeding/bruising Objective Vital Signs Date Time Temp Pulse Resp B/P (MAP) Pulse Ox O2 Delivery O2 Flow Rate FiO2 08/03/17 08:04 36.8 94 16 124/66 (85) 97 08/03/17 08:00 Room Air 08/03/17 04:00 Room Air 08/03/17 03:58 37.5 97 18 137/78 (97) 94 08/03/17 00:29 38.0 96 18 126/76 (93) 95 Room Air 08/02/17 23:59 Room Air 08/02/17 20:00 Room Air 08/02/17 19:26 37.3 89 18 134/73 (93) 97 Room Air 08/02/17 16:00 Room Air 08/02/17 15:48 37.7 103 20 123/69 (87) 97 08/02/17 11:41 36.8 99 16 124/77 (93) 08/02/17 11:30 Room Air Physical Exam General Appearance: no apparent distress Eyes: normal inspection ENT: hearing grossly normal Neck: no JVD Respiratory/Chest: no respiratory distress, no accessory muscle use Cardiovascular: no JVD Extremities: normal inspection Neurologic/Psychiatric: alert, normal mood/affect, oriented x 3 Skin: normal color Laboratory Results Last 24 Hours Test 08/03/17 06:27 White Blood Count 8.20 K/uL Red Blood Count 3.92 M/uL Hemoglobin 9.1 g/dL Hematocrit 28.4 % Mean Corpuscular Volume 72.4 fL Mean Corpuscular Hemoglobin 23.2 pg Mean Corpuscular Hemoglobin Concent 32.0 g/dl Platelet Count 156 K/uL Mean Platelet Volume 9.3 fL Neutrophils (%) (Auto) 85.4 % Lymphocytes (%) (Auto) 6.8 % Monocytes (%) (Auto) 4.9 % Eosinophils (%) (Auto) 1.5 % Basophils (%) (Auto) 0.5 % Neutrophils # (Auto) 7.01 K/uL Lymphocytes # (Auto) 0.56 K/uL Monocytes # (Auto) 0.40 K/uL Eosinophils # (Auto) 0.12 K/uL Basophils # (Auto) 0.04 K/uL RDW Standard Deviation 49.4 fL RDW Coefficient of Variation 18.4 % Immature Granulocyte % (Auto) 0.9 % Immature Granulocyte # (Auto) 0.07 K/uL Anisocytosis PRESENT Microcytosis PRESENT Prothrombin Time 18.2 SECONDS Prothromb Time International Ratio 1.8 Sodium Level 138 mmol/L Potassium Level 3.3 mmol/L Chloride Level 111 mmol/L Carbon Dioxide Level 16 mmol/L Anion Gap 11.0 mmol/L Blood Urea Nitrogen 8 mg/dl Creatinine 0.91 mg/dl Est Creatinine Clear Calc Drug Dose 93.0 ml/min Estimated GFR () 90.2 Estimated GFR (Non- 77.8 BUN/Creatinine Ratio 8.9 Random Glucose 148 mg/dl Calcium Level 8.0 mg/dl Magnesium Level 2.0 mg/dl Assessment and Plan POD #3 s/p left ureteral stent placement AFVSS. Continue IV abx pending culture sensitivities. Would then transition to 10-14 days of oral abx prior to d/c home. Uncertain if a stone is the source of pt's hydro and sepsis. Will eventually need outpatient ureteroscopy for further evaluation once her infection has been adequately treated. Will arrange for outpatient f/u with Dr. Berg. Pt OK for d/c home today if culture sensitivities return. Recommend d/c home on 10-14 days of oral abx (Cipro or Bactrim DS preferable) and Pyridium.
[2017-08-03 11:52] VITALS: BP 108/65; PULSE 92; TEMP 37.5; O2SAT 99
[2017-08-03] MEDS ORDERED: CIPR-255 PO (13:16)
[2017-08-03] MEDS ORDERED: LCTX PO (13:16)
[2017-08-03] MEDS ORDERED: PHEN-1043 PO (13:16)
[2017-08-03] MEDS ORDERED: SULF800T23 PO (13:21)
--- NOTE | 2017-08-03 13:25 | Discharge Instructions ---
Discharge Instructions Date of Service Aug 03, 2017. Admission Reason for Admission: Hydronephrosis With Urinary Obstruction Due To Discharge Discharge Diagnosis / Problem: sepsis 2/2 left hydronephrosis, L ureteral stone: s/p cuystoscopy and sten Discharge Goals Goal(s): Decrease discomfort, Improve function Activity Recommendations Activity Limitations: resume your previous activity . Instructions / Follow-Up Instructions / Follow-Up FOLLOWUP WITH FAMILY DOCTOR ON August AT 11:05AM FOLLOWUP WITH UROLOGY Dr. Berg. IN 1-2 W[address]KS [address] [place] [address] FOLLOWUP WITH COUMADIN CLINIC FOR COUMADIN DOSING LAB: BMP IN 3-4 DAYS AND THEN WEEKLY X 2 TIMES AND FOLLOW RESULTS WITH FAMILY DOCTOR FOR LOW POTASSIUM LEVELS. Current Hospital Diet Patient's current hospital diet: Regular Diet Discharge Diet Recommended Diet: Regular Diet Procedures Procedures Performed: Cystoscopy with left stent placement and retrograde pyelogram Pending Studies Studies pending at discharge: no Medical Emergencies . Who to Call and When: Medical Emergencies: If at any time you feel your situation is an emergency, please call 911 immediately. . Non-Emergent Contact Non-Emergency issues call your: Primary Care Provider . . "Provider Documentation" section prepared by Royce Angel. .
[2017-08-03] MEDS ORDERED: MCRK20 PO (13:31)
[2017-08-03 14:00] VITALS: BP 108/65; PULSE 92; TEMP 37.5; O2SAT 99
--- NOTE | 2017-08-03 17:51 | Progress Note ---
Internal Med Progress Note Date of Service: Aug 03, 2017. Provider Documentation: SUBJECTIVE: resting comfortably had temp spike last night but ok since then hematuria stopped as per patient feeling fine wants to go home for Tamara to be with her 4 yr old son no sob or chest pain no abdominal pain OBJECTIVE: Vital Signs-as noted below Exam: General-alert and oriented. ENT-Normal hearing Neck-no neck masses Lungs-cta b/l no wheezing no crackles present Heart-S1 and S2 heard regular rate and rhythm no murmurs Abdomen-Soft bowel sounds present non tender no distension Extremities-no edema no erythema Neuro-alert and awake moves extremities Lab data as noted below. 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 Sepsis 2/2 left hydronephrosis, ? L ureteral stone: Presented with fever, tachycardia, leukocytosis, flank pain -S/p emergent cystoscopy and stent placement 2/2 presumed septic obstruction Bacteremia with pansensitive e.coli received Rocephin to 2gm daily then later iv cefepime stable discharged on bactrim close f/u with pcp and urology. H/o femoral artery thrombosis: S/p left common femoral endarterectomy with graft in May 2017 Coumadin was held post-operatively restarted Coumadin inr 2.2 f/u with Coumadin clinic Acute blood loss anemia on chronic Iron deficiency anemia: Hematuria post procedure Hgb at baseline ~9 hb 7.6 08/01/17 s/p transfused 2units hb 9.1 today f/u with pcp. Hypokalemia 'k 2.8 today will replace seems chronic discharged on kcl supplement - needs close f/u with pcp Discharged home Vital Signs: Date Time Temp Pulse Resp B/P (MAP) Pulse Ox O2 Delivery O2 Flow Rate FiO2 08/03/17 14:00 37.5 92 18 99 Room Air 08/03/17 12:00 Room Air 08/03/17 11:52 37.5 92 18 108/65 (79) 99 Room Air 08/03/17 08:04 36.8 94 16 124/66 (85) 97 08/03/17 08:00 Room Air 08/03/17 04:00 Room Air 08/03/17 03:58 37.5 97 18 137/78 (97) 94 08/03/17 00:29 38.0 96 18 126/76 (93) 95 Room Air 08/02/17 23:59 Room Air 08/02/17 20:00 Room Air 08/02/17 19:26 37.3 89 18 134/73 (93) 97 Room Air Lab Results: Results Past 24 Hours Test 08/03/17 06:27 Range/Units White Blood Count 8.20 4.8-10.8 K/uL Red Blood Count 3.92 4.2-5.4 M/uL Hemoglobin 9.1 12.0-16.0 g/dL Hematocrit 28.4 37-47 % Mean Corpuscular Volume 72.4 80-100 fL Mean Corpuscular Hemoglobin 23.2 25-34 pg Mean Corpuscular Hemoglobin Concent 32.0 32-36 g/dl Platelet Count 156 130-400 K/uL Mean Platelet Volume 9.3 7.4-10.4 fL Neutrophils (%) (Auto) 85.4 % Lymphocytes (%) (Auto) 6.8 % Monocytes (%) (Auto) 4.9 % Eosinophils (%) (Auto) 1.5 % Basophils (%) (Auto) 0.5 % Neutrophils # (Auto) 7.01 1.4-6.5 K/uL Lymphocytes # (Auto) 0.56 1.2-3.4 K/uL Monocytes # (Auto) 0.40 0.11-0.59 K/uL Eosinophils # (Auto) 0.12 0-0.5 K/uL Basophils # (Auto) 0.04 0-0.2 K/uL RDW Standard Deviation 49.4 36.4-46.3 fL RDW Coefficient of Variation 18.4 11.5-14.5 % Immature Granulocyte % (Auto) 0.9 % Immature Granulocyte # (Auto) 0.07 0.00-0.02 K/uL Anisocytosis PRESENT Microcytosis PRESENT Prothrombin Time 18.2 9.0-12.0 SECONDS Prothromb Time International Ratio 1.8 0.9-1.1 Sodium Level 138 136-145 mmol/L Potassium Level 3.3 3.5-5.1 mmol/L Chloride Level 111 98-107 mmol/L Carbon Dioxide Level 16 21-32 mmol/L Anion Gap 11.0 3-11 mmol/L Blood Urea Nitrogen 8 7-18 mg/dl Creatinine 0.91 0.60-1.20 mg/dl Est Creatinine Clear Calc Drug Dose 93.0 ml/min Estimated GFR () 90.2 Estimated GFR (Non- 77.8 BUN/Creatinine Ratio 8.9 10-20 Random Glucose 148 70-99 mg/dl Calcium Level 8.0 8.5-10.1 mg/dl Magnesium Level 2.0 1.8-2.4 mg/dl
--- NOTE | 2017-08-03 18:08 | Discharge Summary ---
Discharge Summary Date of Service Aug 03, 2017. Discharge Summary Admission Date: Jul 31, 2017 at 15:33 Discharge Date: Aug 03, 2017 Discharge Disposition: Home Principal Diagnosis: SEPSIS BACTEREMIA left hydronephrosis, ? L ureteral stone:S/P STENT PLACEMENT Secondary Diagnoses/Problems: (1) Iron deficiency anemia Status: Chronic (2) Sciatica Status: Chronic (3) Tobacco use disorder Status: Chronic Procedures: CXR: Basilar subsegmental atelectatic changes. KUB: Intraoperative radiographs demonstrating placement of a double-pigtail left-sided nephroureteral stent. Consultations: UROLOGY Medication Reconciliation New Medications: Lactobacillus Acidophilus (Lactinex) Tab 2 TAB PO BID for 15 Days, TAB Potassium Chloride (Klor-Con M20) 20 Meq Tabcr 20 MEQ PO DAILY, #30 Sulfamethoxazole-Trimethoprim (Bactrim Ds 800MG/160MG) 1 Tab Tab 1 TAB PO BID for 10 Days, #20 TAB Phenazopyridine HCl (Phenazopyridine HCl) 200 Mg Tab 200 MG PO TID PRN for Bladder pain for 2 Days, #6 TAB Continued Medications: Warfarin Sod (Jantoven) 5 Mg Tab 5 MG PO DAILY TAKE 5 MG EVERY DAY OR OTHERWISE DIRECTED TO TAKE BY ANTICOAGULATION CLINIC/MD Admission Information HPI (per Admitting provider): Patient is a 42-year-old female with 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 Patient was seen in ER on 07/29 for left flank pain and CT abdomen/pelvis revealed left hydronephrosis without stone visualization. Pain was adequately controlled in ED and patient was sent home on IR oxycodone. Pain persisted over the next few days and patient also endorses persistent fever of 102-104 degrees F. Flank pain significantly worsened around 11am and patient came to ED for further evaluation. Denies personal history of kidney stones. Has been on warfarin since May S/P left femoral endarterectomy. Endorses fever, chills and nausea. Is able to urinate. Denies lightheadedness , headache, visual changes, chest pain, shortness of breath, abdominal pain, vomiting, diarrhea or LE swelling. Was found to be febrile at 38.7C and tachycardic on admission. Was taken by urology for emergent cystoscopy and stent placement by Dr. Berg for presumed septic obstruction. Patient was evaluated post-operatively. Physical Exam (per Admitting): General Appearance: WD/WN, no apparent distress Head: normocephalic, atraumatic Eyes: normal inspection, PERRL, sclerae normal ENT: normal ENT inspection, hearing grossly normal, pharynx normal Neck: supple, thyroid normal, trachea midline Respiratory/Chest: chest non-tender, lungs clear, normal breath sounds, no respiratory distress, no accessory muscle use Cardiovascular: regular rate, rhythm, no murmur, normal peripheral pulses Abdomen/GI: non tender, soft, no organomegaly Back: no CVA tenderness Extremities/Musculoskelatal: normal inspection, no calf tenderness, no pedal edema Neurologic/Psych: no motor/sensory deficits, alert, normal mood/affect, oriented x 3 Skin: normal color, warm/dry, no rash Hospital Course Patient is a 42-year-old female with 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 Sepsis 2/2 left hydronephrosis, ? L ureteral stone: Presented with fever, tachycardia, leukocytosis, flank pain -S/p emergent cystoscopy and stent placement 2/2 presumed septic obstruction Bacteremia with pansensitive e.coli received Rocephin to 2gm daily then later iv cefepime stable discharged on bactrim close f/u with pcp and urology. H/o femoral artery thrombosis: S/p left common femoral endarterectomy with graft in May 2017 Coumadin was held post-operatively restarted Coumadin inr 2.2 f/u with Coumadin clinic Acute blood loss anemia on chronic Iron deficiency anemia: Hematuria post procedure Hgb at baseline ~9 hb 7.6 08/01/17 s/p transfused 2units hb 9.1 today f/u with pcp. Hypokalemia 'k 2.8 today will replace seems chronic discharged on kcl supplement - needs close f/u with pcp Discharged home Total time spent on discharge = 35MINUTES This includes examination of the patient, discharge planning, medication reconciliation, and communication with other providers. Discharge Instructions Discharge Instructions Date of Service Aug 03, 2017. Admission Reason for Admission: Hydronephrosis With Urinary Obstruction Due To Discharge Discharge Diagnosis / Problem: sepsis 2/2 left hydronephrosis, L ureteral stone: s/p cuystoscopy and sten Discharge Goals Goal(s): Decrease discomfort, Improve function Activity Recommendations Activity Limitations: resume your previous activity . Instructions / Follow-Up Instructions / Follow-Up FOLLOWUP WITH FAMILY DOCTOR ON August AT 11:05AM FOLLOWUP WITH UROLOGY Dr. Berg. IN 1-[address] W[address] [place] [address] FOLLOWUP WITH COUMADIN CLINIC FOR COUMADIN DOSING LAB: BMP IN 3-4 DAYS AND THEN WEEKLY X 2 TIMES AND FOLLOW RESULTS WITH FAMILY DOCTOR FOR LOW POTASSIUM LEVELS. Current Hospital Diet Patient's current hospital diet: Regular Diet Discharge Diet Recommended Diet: Regular Diet Procedures Procedures Performed: Cystoscopy with left stent placement and retrograde pyelogram Pending Studies Studies pending at discharge: no Medical Emergencies . Who to Call and When: Medical Emergencies: If at any time you feel your situation is an emergency, please call 911 immediately. . Non-Emergent Contact Non-Emergency issues call your: Primary Care Provider . .
== END 2017-08-03 14:45 | disposition home or self-care (01) | DRG 872 ==
LOC: C.EDB 14:22 → C.2T 15:33 → ENRESERV 16:58
PROVIDERS: ADMIT Internal Medicine; ATTEND Internal Medicine
PROC: 0T778DZ Dilation of Left Ureter with Intraluminal Device, Via Natural or Artificial Opening Endoscopic (ICD-10-PCS; principal; 2017-07-31 14:45)
DX: A41.51 Sepsis due to Escherichia coli [E. coli] (principal); N13.2 Hydronephrosis with renal and ureteral calculous obstruction; D62 Acute posthemorrhagic anemia; F17.200 Nicotine dependence, unspecified, uncomplicated; E87.6 Hypokalemia; M54.40 Lumbago with sciatica, unspecified side; Z83.3 Family history of diabetes mellitus; Z86.718 Personal history of other venous thrombosis and embolism; Z79.82 Long term (current) use of aspirin; Z88.6 Allergy status to analgesic agent

== ENCOUNTER → 2017-08-10 | Outpatient (CLI) | payer OTHER ==
[~2017-08-10] MED LIST changes: -CMD5 PO; -ENOX80IN INJ; +LCTX PO; +MCRK20 PO; -NICO21DI4 TD; +PHEN-1043 PO; +SULF800T23 PO; -ULT50X PO; +WARF5TAB7 PO
== END | disposition home or self-care (01) ==
LOC: C.LABSPEC 15:16
PROVIDERS: ATTEND Urology
DX: N20.0 Calculus of kidney (principal)

== ENCOUNTER → 2017-08-13 | Outpatient (CLI) | payer OTHER ==
[2017-08-13 16:39] LABS: INR 2.7 (0.9-1.1)
== END | disposition home or self-care (01) ==
LOC: C.LAB 15:33
PROVIDERS: ATTEND Urology
DX: N20.0 Calculus of kidney (principal)

== ENCOUNTER 2017-09-03 08:55 | Day surgery (SDC) | payer OTHER ==
[2017-08-24 12:56] VITALS: BMI 22.0
[~2017-09-03] VITALS: Ht 182.9 cm; Wt 76.0 kg
[~2017-09-03 08:55] MED LIST changes: +ATROPINE SULFATE 0.1 MG/ML 5ML SYR IV PRN; +CEFAZOLIN 2000MG IV PUSH 15 ML IV SCH; +EpHEDrine SULFATE INJ 50 MG/ML AMP IV PRN; +FENTANYL CITRATE INJ 50 MCG/1 ML 2 ML VIAL IV PRN; +LACTATED RINGER'S 1000ML 1,000 ML IV SCH; -LCTX PO; -MCRK20 PO; +ONDANSETRON INJ 2 MG/ML 2 ML VIAL IV PRN; -PHEN-1043 PO; -SULF800T23 PO
[2017-09-03] MEDS ORDERED: ENOX80IN SQ (09:15)
[2017-09-03 09:19] VITALS: BP 140/79; PULSE 94; TEMP 36.5; O2SAT 99; Ht 182.9 cm; Wt 76.0 kg
[2017-09-03 09:47] LABS: INR 0.9 (0.9-1.1); PTT PATIENT 22.8 SECONDS (21.0-31.0)
[2017-09-03] MEDS ORDERED: FENTANYL CITRATE INJ 50 MCG/1 ML 2 ML VIAL ONE (10:44)
[2017-09-03] MEDS ORDERED: MIDAZOLAM HCL 1 MG/ML 2ML VIAL ONE (10:44)
[2017-09-03] MEDS ORDERED: HYDROmorphone INJ 2 MG/ML SYR/VIAL IV PRN (11:00)
[2017-09-03] MEDS ORDERED: LABETALOL HCL IV 5 MG/ML 20ML IV PRN (11:00)
[2017-09-03] MEDS ORDERED: FENTANYL CITRATE INJ 50 MCG/1 ML 2 ML VIAL IV PRN (11:00)
[2017-09-03] MEDS ORDERED: EpHEDrine SULFATE INJ 50 MG/ML AMP IV PRN (11:00)
[2017-09-03] MEDS ORDERED: MEPERIDINE HCL 25 MG/ML CARP IV PRN (11:00)
[2017-09-03] MEDS ORDERED: ONDANSETRON INJ 2 MG/ML 2 ML VIAL IV PRN (11:00)
[2017-09-03] MEDS ORDERED: ATROPINE SULFATE 0.1 MG/ML 5ML SYR IV PRN (11:00)
--- NOTE | 2017-09-03 11:00 | History & Physical Bridge Note ---
H&P Re-Evaluation Bridge Note: I have examined the patient, reviewed the History & Physical and in the interval since the performance of the History & Physical I have noted the following changes of clinical significance: No changes noted
[2017-09-03] MEDS ORDERED: CIPR-255 PO (11:08)
[2017-09-03] MEDS ORDERED: PHEN-775 PO (11:08)
[2017-09-03] MEDS ORDERED: OXYC7.5T65 PO (11:08)
--- NOTE | 2017-09-03 11:11 | Discharge Instructions ---
Discharge Instructions Date of Service Sep 03, 2017. Admission Reason for Admission: Nephrolithiasis Discharge Discharge Diagnosis / Problem: Left Hydronephrosis Discharge Goals Goal(s): Decrease discomfort, Improve function Activity Recommendations Activity Limitations: resume your previous activity Lifting Limitations: gradually increase as tolerated Exercise/Sports Limitations: gradually increase as tolerated . Instructions / Follow-Up Instructions / Follow-Up May have blood in urine. May have pelvic discomfort. May have intermittent flank pain. Call if any issues. Call if any fevers or chills. Patient has instructions for anticoagulation. Follow this plan as previously ordered. Current Hospital Diet Patient's current hospital diet: Discharge Diet Recommended Diet: Regular Diet Procedures Procedures Performed: Cystoscopy, Left Ureteroscopy Pending Studies Studies pending at discharge: no Medical Emergencies . Who to Call and When: Medical Emergencies: If at any time you feel your situation is an emergency, please call 911 immediately. . Non-Emergent Contact Non-Emergency issues call your: Primary Care Provider, Urologist Call Non-Emergent contact if: you have a fever, temperature is above 101, temperature is above 101.5, your pain is not controlled, your pain is worsening , your pain is unusual for you . . "Provider Documentation" section prepared by Demar Berg,. .
[2017-09-03] MEDS ORDERED: OXYCODONE/ACETAMINOPHEN 7.5-325 TAB PO PRN (11:15)
[2017-09-03] MEDS ORDERED: LIDOCAINE HCL 2% 2 ML VIAL (20MG/ML) ONE (11:32)
[2017-09-03] MEDS ORDERED: PROPOFOL IV EMULSION 10 MG/ML 20 ML VIAL ONE (11:32)
[2017-09-03] MEDS ORDERED: ONDANSETRON INJ 2 MG/ML 2 ML VIAL ONE (11:32)
[2017-09-03] MEDS ORDERED: DEXAMETHASONE SOD INJ 4 MG/ML VIAL ONE (11:32)
[2017-09-03] MEDS ORDERED: Cysto-Conray II 17.2% 250ML BOTTLE ONE (11:37)
[2017-09-03] MEDS ORDERED: BELLADONNA/OPIUM SUPP 60 MG SUPP PR ONE (11:49)
--- NOTE | 2017-09-03 11:57 | [facility] Operative Report ---
Operative Report Operative Date Sep 03, 2017. Pre-Operative Diagnosis Left Obstruction, Possible stone Post-Operative Diagnosis Same. Midureteral papillary lesion with proximal hydronephrosis Procedure(s) Performed Cystoscopy with Left Ureteroscopy, Surgeon Berg Estimated Blood Loss Minimal Findings Obstruction of left ureter with papillary suspicious lesion. No stone Drains None Anesthesia Type MAC Complication(s) none Disposition Recovery Room / PACU Indications Obstruction with significant hydronephrosis on left and pyelonephritis. Risks and benefits discussed at length. Description of Procedure Patient was consented and brought back to the operating room. Patient was placed under anesthesia in the supine position and moved to the dorsal lithotomy position. Patient was prepped and draped in the regular sterile fashion. A time out was completed. A 30degree Cystoscope was placed into the bladder and the entire bladder was examined. The UO's were identified. The left stent was grasped and partially removed. A wire was placed. A rigid ureteroscope was selected and taken into the left ureter. The entire ureter was evaluated. No stone was identified, however a papillary lesion was discovered at the mid ureter with proximal dilation of ureter. Biopsy was taken of the papillary lesion. A brush was also completed of the area. These were sent for pathological analysis. At this point, a retrograde pyelogram was completed through the scope. With the wire in place, a 6 Fr Double J stent was placed. It was confirmed with fluoroscopy. With the stent in place, the bladder was emptied. The scope was removed. The patient was cleaned, aroused from anesthesia, and transferred to the pacu in stable condition having tolerated the procedure well with no complications. I was present and participated in all aspects of the procedure. The patient will be monitored in the PACU until transferred. I attest to the content of the Intraoperative Record and any orders documented therein. Any exceptions are noted below.
[2017-09-03] MEDS ORDERED: SODIUM CHLORIDE 0.9% PF 50 ML VIAL ONE (12:06)
--- NOTE | 2017-09-03 12:06 | DIAGNOSTIC IMAGING REPORT ---
RETROGRADE INCLUDES KUB CLINICAL HISTORY: 42 years-old Female presenting with LT CYSTO/LASER/STENT EXCHANGE. TECHNIQUE: 11 fluoroscopic image(s) recorded as part of an intraoperative procedure. COMPARISON: 07/31/2017 and 08/01/2017. FINDINGS/IMPRESSION: A scope and guidewire was introduced into the left ureter. The left urinary collecting system was opacified with contrast, which is moderately dilated with blunted calyces. Subsequently a left ureteral stent was placed. Please see surgical report for further details. Dose area product (mGy.cm^2): 1786.4. Fluoroscopy time: 34.2. Number of fluoroscopic spot images: 0. Electronically signed by: Fred Gomes M.D. 09/03/2017 12:04 PM Dictated Date/Time: 09/03/2017 12:03 PM
--- NOTE | 2017-09-03 12:44 | Anesthesiology Progress Note ---
Anesthesia Post Op Note Date & Time Sep 03, 2017 at 12:44 Vital Signs Pain Intensity: 0 Vital Signs Past 12 Hours Date Time Temp Pulse Resp B/P (MAP) Pulse Ox O2 Delivery O2 Flow Rate FiO2 09/03/17 12:35 36.9 72 16 155/89 98 Room Air 09/03/17 12:25 72 16 158/93 99 Room Air 09/03/17 12:15 67 16 155/83 100 Oxymask 10 09/03/17 12:05 69 16 143/84 100 Oxymask 10 09/03/17 11:59 37.2 75 12 147/83 100 Oxymask 10 09/03/17 09:19 36.5 94 18 140/79 (99) 99 Room Air Notes Mental Status: alert / awake / arousable, participated in evaluation Pt Amnestic to Procedure: Yes Nausea / Vomiting: adequately controlled Pain: adequately controlled Airway Patency, RR, SpO2: stable & adequate BP & HR: stable & adequate Hydration State: stable & adequate Anesthetic Complications: no major complications apparent
[2017-09-03 12:50] VITALS: BP 144/74; PULSE 69; TEMP 36.6; O2SAT 98
[2017-09-03 13:20] VITALS: BP 146/61; PULSE 71; O2SAT 99
[2017-09-03 13:45] VITALS: BP 150/73; PULSE 81; TEMP 36.8; O2SAT 98
== END 2017-09-03 14:40 | disposition home or self-care (01) ==
LOC: C.ACU 08:55
PROVIDERS: ATTEND Urology
DX: N20.0 Calculus of kidney (principal); N36.8 Other specified disorders of urethra; N13.30 Unspecified hydronephrosis; Z79.82 Long term (current) use of aspirin; I73.9 Peripheral vascular disease, unspecified; Z86.718 Personal history of other venous thrombosis and embolism